=== PATIENT | female | born 1990 | race Hispanic/Latino ===

== ENCOUNTER 2019-06-05 17:20 | Inpatient (IN) | payer MEDICAID ==
[~2019-06-05] VITALS: Ht 165.1 cm; Wt 94.1 kg
[~2019-06-05 17:20] MED LIST: ACET1TAB12 PO; MACR100 PO
[2019-06-05] MEDS ORDERED: SODIUM CHLORIDE 0.9% 1000ML 3,000 ML IV ONE (17:45)
[2019-06-05 17:46] LABS: BASOPHILS % (AUTO) 0.3 % (0.0-5.0); EOSINOPHILS % (AUTO) 0.1 % (0.0-8.0); HEMATOCRIT 43.1 % (36-48); LYMPHOCYTES % (AUTO) 12.9 % (21.0-51.0); MEAN CORPUSCULAR HEMOGLOBIN 29.1 pg (27.0-33.0); MEAN CORPUSCULAR VOLUME 85.7 fL (79-99); MONOCYTES % (AUTO) 4.9 % (3.0-13.0); NEUTROPHILS % (AUTO) 81.8 % (40.0-77.0); PLATELET COUNT (AUTO) 372 K/uL (130-400); RED BLOOD CELL COUNT(AUTO) 5.02 MIL/uL (4.00-5.50); RED CELL DISTRIBUTION WIDTH 13.8 % (11.0-15.5); WHITE BLOOD COUNT (AUTO) 26.8 K/uL (4.8-10.8)
[2019-06-05 18:02] LABS: CARBON DIOXIDE 21 mmol/L (21-32); CHLORIDE 101 mmol/L (101-111); CREATININE 0.9 mg/dL (0.5-1.5); GLOMERULAR FILTR. RATE CALC 78 mL/min (>60); GLUCOSE,RANDOM 343 mg/dL (70-105); INR 0.98 (0.85-1.15); PARTIAL THROMBOPLASTIN TIME 25.9 SEC (26.3-35.5); POTASSIUM 3.4 mmol/L (3.5-5.1); PROTHROMBIN TIME 10.3 SEC (9.6-11.6); SODIUM SERUM 137 mmol/L (136-145); UREA NITROGEN, BLOOD 12 mg/dL (7-18)
[2019-06-05 18:16] LABS: APPEARANCE,URINE Cloudy (CLEAR); BILIRUBIN,URINE Negative (NEGATIVE); COLOR,URINE Yellow (YELLOW); GLUCOSE, URINE (UA) >=1000 mg/dL (NEGATIVE); KETONES,URINE 40 mg/dL (NEGATIVE); LEUKOCYTE ESTERASE ,URINE Small (NEGATIVE); NITRATE,URINE Positive (NEGATIVE); OCCULT BLOOD,URINE Trace (NEGATIVE); PH,URINE 5.5 (5.0-8.0); PROTEIN,URINE Trace mg/dL (NEGATIVE); UROBILINOGEN,URINE 0.2 mg/dL (0.2-1.0)
[2019-06-05 18:17] LABS: BILIRUBIN,TOTAL 1.3 mg/dL (0.2-1.0)
[2019-06-05 18:18] LABS: ALANINE AMINOTRANSFERASE 9 U/L (12-78); ALBUMIN 3.5 g/dL (3.5-5.0); ASPARTATE AMINOTRANSFERASE 9 U/L (10-37); CREATINE KINASE, TOTAL 29 U/L (21-232); MYOGLOBIN 17 ng/mL (10-92); TROPONIN I < 0.04 ng/mL (0.00-0.06)
[2019-06-05] MEDS ORDERED: POTASSIUM BICARB/CIT AC 25 MEQ TABLET.EFF ONE (18:25)
[2019-06-05] MEDS ORDERED: METRONIDAZOLE 500MG/100ML BAG 100 ML ONE (18:26)
[2019-06-05] MEDS ORDERED: ACETAMINOPHEN 325 MG TAB ONE (18:26)
[2019-06-05] MEDS ORDERED: INSULIN HUMULIN R 100 UNIT/ML 3ML ONE (18:28)
[2019-06-05 18:29] LABS: BACTERIA,URINE Moderate /HPF (None Seen); MUCUS,URINE Few LPF (None Seen)
[2019-06-05] MEDS ORDERED: GENTAMICIN SULFATE 100 MG in SODIUM CHLORIDE 0.9% 100 ML IV ONE (19:00)
[2019-06-05] MEDS ORDERED: ONDANSETRON HCL 4 MG/2 ML VIAL ONE (20:11)
[2019-06-05] MEDS ORDERED: MORPHINE SULFATE 4 MG/1ML SYG ONE (20:11)
[2019-06-05] MEDS: SODIUM CHLORIDE 0.9% 1000ML 1,000 ML IV SCH (21:20)
[2019-06-05] MEDS ORDERED: LACTULOSE 20 GM/30 ML UDCUP PO PRN (21:30)
[2019-06-05] MEDS ORDERED: ONDANSETRON HCL 4 MG/2 ML VIAL IV PRN (21:30)
[2019-06-05] MEDS ORDERED: POTASSIUM CHLORIDE 10% ELIXIR 20 MEQ/15 ML UDCUP PO PRN (21:30)
[2019-06-05] MEDS ORDERED: ACETAMINOPHEN 325 MG TAB PO PRN ×2 (21:30)
[2019-06-05] MEDS ORDERED: LIDOCAINE HCL-MPF 1% 2ML VIAL IV PRN (21:30)
[2019-06-05] MEDS ORDERED: GENTAMICIN PROTOCOL PER PHARMACY IV SCH (21:30)
[2019-06-05] MEDS ORDERED: POTASSIUM CHLORIDE 10MEQ/100ML 100 ML IV PRN (21:30)
[2019-06-05] MEDS ORDERED: PHARMACY COMMUNICATION MISC SCH (21:45)
[2019-06-05] MEDS ORDERED: KETOROLAC TROMETHAMINE 15MG/ML ONE (22:16)
[2019-06-05] MEDS ORDERED: SODIUM CHLORIDE 0.9% 1000ML 1,000 ML IV ONE (22:17)
[2019-06-06] VITALS (25 sets, daily range): BP systolic 109–157; BP diastolic 55–101
[2019-06-06] MEDS: KETOROLAC TROMETHAMINE 15MG/ML IV PRN ×2 (02:05→08:39)
[2019-06-06 05:05] LABS: BASOPHILS % (AUTO) 0.6 % (0.0-5.0); EOSINOPHILS % (AUTO) 0.1 % (0.0-8.0); HEMATOCRIT 38.7 % (36-48); MEAN CORPUSCULAR HEMOGLOBIN 29.2 pg (27.0-33.0); MEAN CORPUSCULAR HGB CONC 34.2 g/dL (32.0-36.0); MEAN CORPUSCULAR VOLUME 85.6 fL (79-99); MONOCYTES % (AUTO) 3.3 % (3.0-13.0); PLATELET COUNT (AUTO) 297 K/uL (130-400); RED BLOOD CELL COUNT(AUTO) 4.52 MIL/uL (4.00-5.50); RED CELL DISTRIBUTION WIDTH 13.6 % (11.0-15.5)
[2019-06-06 05:10] LABS: CREATININE 0.8 mg/dL (0.5-1.5); POTASSIUM 3.7 mmol/L (3.5-5.1)
[2019-06-06] MEDS ORDERED: GENTAMICIN SULFATE 240 MG in SODIUM CHLORIDE 0.9% 100 ML IV SCH (06:00)
[2019-06-06] MEDS: INSULIN HUMULIN R 100 UNIT/ML 3ML SQ SCH ×3 (06:32→21:00)
[2019-06-06] MEDS: FAMOTIDINE 20MG TAB 20 MG TAB PO SCH ×2 (08:41→21:50)
[2019-06-06] MEDS: ENOXAPARIN SODIUM 40 MG/0.4 ML SYRINGE SQ SCH (09:00)
[2019-06-06] MEDS ORDERED: FLU VACC QUAD 2019-20(6MOS UP) 60 MCG/0.5 ML VIAL IM SCH (09:15)
[2019-06-06] MEDS ORDERED: FLU VACC QS2019-20 36MOS UP/PF 60 MCG/0.5 ML ML IM SCH (10:00)
[2019-06-06] MEDS ORDERED: MORPHINE SULFATE 2 MG/ML 1ML SYG IVP PRN (12:00)
[2019-06-06] MEDS: SODIUM CHLORIDE 0.9% 1000ML 1,000 ML IV SCH ×3 (12:05→21:50)
[2019-06-06] MEDS: POTASSIUM CHLORIDE 20 MEQ ERTAB PO PRN (12:09)
--- NOTE | 2019-06-06 13:05 | NUR ---
diabetic diet education: Printed materials preinted and reviewed on diabetic diet. Pt with minimal questions. Reports lots of pain, nausea due to pain and gagging due to nausea. Pt encouraged to review printed materials when feeling better. RD will continue to f/u for diet reenforcement. Pt encouraged to request RD consult as well. Addendum: 06/06/19 at [address] Amended: Links added.
[2019-06-06] MEDS: MEROPENEM 1 GM VIAL IVP SCH ×2 (13:18→21:50)
--- NOTE | 2019-06-06 13:19 | NUR ---
Nutrition intervention: Nutrition consult for DM diet education. At time of visit pt reports n/d and lots of pain, medication being provided by RN. Provided pt with education however reenforcement may be beneficial. Will continue to monitor and f/u for continued nutrition intervention. Recommendations: Continue current diet therapy. Consult RD if nutritional questions or concerns arise. Addendum: 06/06/19 at [address] Amended: Links added.
[2019-06-06] MEDS ORDERED: LOPERAMIDE 1 MG/7.5 ML UDCUP PO SCH (13:30)
[2019-06-06] MEDS: MORPHINE SULFATE 4 MG/1ML SYG IM PRN (14:19)
[2019-06-06] MEDS ORDERED: METOCLOPRAMIDE 10 MG/2 ML VIAL ONE (15:14)
--- NOTE | 2019-06-06 16:10 | NUR ---
D/C PLAN CM spoke to pt regarding d/c planning. Pt is ind. and lives with father. States family can assist in care if needed. Plan to home. No needs verbalized or identified. CM to f/u. Addendum: 06/06/19 at 1612 by ANDERS MCGOWAN CM Amended: Links added.
[2019-06-06] MEDS ORDERED: METOCLOPRAMIDE 10 MG/2 ML VIAL IVP SCH (16:15)
[2019-06-06] MEDS ORDERED: IOHEXOL-350 50ML VIAL IV ONE (18:50)
[2019-06-06] MEDS ORDERED: LIDOCAINE PF 2% 5ML ABBOJECT ONE (19:20)
[2019-06-06] MEDS ORDERED: MIDAZOLAM HCL 1 MG/ML 2ML VIAL ONE (19:20)
[2019-06-06] MEDS ORDERED: NEOSTIGMINE 5MG/5ML SYR IV ONE (19:21)
[2019-06-06] MEDS ORDERED: PROPOFOL 10 MG/ML 20ML VIAL IV ONE (19:21)
[2019-06-06] MEDS ORDERED: SUCCINYLCHOLINE 200MG/10ML SYR ONE (19:21)
[2019-06-06] MEDS ORDERED: FENTANYL CITRATE PF 50 MCG/1 ML 2ML VIAL ONE ×2 (19:21→20:22)
[2019-06-06] MEDS ORDERED: GLYCOPYRROLATE 1 MG/5 ML SYRINGE ONE (19:21)
[2019-06-06] MEDS ORDERED: ROCURONIUM 10MG/1ML SYR 10 MG/ML ML ONE (19:21)
[2019-06-06] MEDS ORDERED: ONDANSETRON HCL 4 MG/2 ML VIAL ONE (20:27)
--- NOTE | 2019-06-06 21:50 | NUR ---
Nursing Bfle-Stel-yd arrival Pt arrived to floor at 2140 alert and oriented from Left urethral stent placement. Pt stated she is hungry but I informed the pt I need to see orders. Pt denies any nausea and only a headache from the bright lights. Pt set up on bedside monitor for post-op vitals. Pt urinating per bedpan. Pt's medications given to her. Pt given liquids.
[2019-06-07] MEDS: MORPHINE SULFATE 4 MG/1ML SYG IM PRN (00:17)
[2019-06-07 00:38] VITALS: BP 134/74
[2019-06-07] MEDS: SODIUM CHLORIDE 0.9% 1000ML 1,000 ML IV SCH ×3 (02:18→21:10)
[2019-06-07 04:00] VITALS: BP 126/79
[2019-06-07] MEDS: KETOROLAC TROMETHAMINE 15MG/ML IV PRN ×2 (04:11→14:32)
[2019-06-07] MEDS: MEROPENEM 1 GM VIAL IVP SCH ×3 (05:22→18:45)
[2019-06-07 05:44] LABS: BASOPHILS % (AUTO) 0.5 % (0.0-5.0); EOSINOPHILS % (AUTO) 0.4 % (0.0-8.0); HEMATOCRIT 35.2 % (36-48); MEAN CORPUSCULAR HEMOGLOBIN 29.2 pg (27.0-33.0); MEAN CORPUSCULAR HGB CONC 33.6 g/dL (32.0-36.0); MONOCYTES % (AUTO) 9.4 % (3.0-13.0); NEUTROPHILS % (AUTO) 70.7 % (40.0-77.0); PLATELET COUNT (AUTO) 255 K/uL (130-400); RED BLOOD CELL COUNT(AUTO) 4.05 MIL/uL (4.00-5.50); RED CELL DISTRIBUTION WIDTH 13.7 % (11.0-15.5); WHITE BLOOD COUNT (AUTO) 15.2 K/uL (4.8-10.8)
[2019-06-07 06:01] LABS: ALBUMIN 2.4 g/dL (3.5-5.0); ASPARTATE AMINOTRANSFERASE 9 U/L (10-37); BILIRUBIN,TOTAL 0.7 mg/dL (0.2-1.0); CARBON DIOXIDE 20 mmol/L (21-32); CHLORIDE 107 mmol/L (101-111); CREATININE 0.6 mg/dL (0.5-1.5); GLOMERULAR FILTR. RATE CALC 125 mL/min (>60); GLUCOSE,RANDOM 242 mg/dL (70-105); POTASSIUM 3.4 mmol/L (3.5-5.1); SODIUM SERUM 138 mmol/L (136-145); TOTAL PROTEIN, SERUM 6.1 g/dL (6.0-8.3); UREA NITROGEN, BLOOD 7 mg/dL (7-18)
[2019-06-07 06:05] LABS: ALANINE AMINOTRANSFERASE < 6 U/L (12-78)
[2019-06-07] MEDS: POTASSIUM CHLORIDE 20 MEQ ERTAB PO PRN ×3 (06:18→18:46)
[2019-06-07] MEDS: INSULIN HUMULIN R 100 UNIT/ML 3ML SQ SCH ×4 (06:32→21:22)
[2019-06-07 07:54] VITALS: BP 130/93
[2019-06-07] MEDS ORDERED: CEFTRIAXONE SODIUM 2 GM VIAL IVP SCH (09:00)
[2019-06-07] MEDS: FAMOTIDINE 20MG TAB 20 MG TAB PO SCH ×2 (10:24→20:17)
[2019-06-07] MEDS: ENOXAPARIN SODIUM 40 MG/0.4 ML SYRINGE SQ SCH (10:24)
[2019-06-07] MEDS: TRAMADOL HCL 50 MG TABLET PO PRN ×2 (10:25→17:09)
[2019-06-07 12:00] VITALS: BP 130/90
[2019-06-07 16:08] VITALS: BP 147/91
[2019-06-07 20:00] VITALS: BP 158/91
[2019-06-07] MEDS: HYDROCODONE/ACETAMINOPHEN 5/325 MG TAB PO PRN (20:19)
--- NOTE | 2019-06-07 20:20 | NUR ---
MEDS SHIFT ASSESSMENT DONE, PLEASE REFER TO CHART. DUE MEDS ADMINISTERED, NORCO PO GIVEN FOR PAINS. PT TOLERATED MEDS WELL. KEPT RESTED AND COMFORTABLE IN BED. CALL LIGHT WITHIN REACH. WILL RE-ASSESS PT. Addendum: 06/08/19 at 0201 by MARIO LANG RN RN Amended: Links added.
--- NOTE | 2019-06-07 21:20 | NUR ---
INSULIN PT JUST HAD HER SHOWER, TOLERATED ACTIVITY WELL. DUE INSULIN DOSE ADMINISTERED, TOLERATED WELL. ENCOURAGED TO REST AND SLEEP. WILL MONITOR PT.
[2019-06-08] VITALS: BP 150/95
[2019-06-08] MEDS: MEROPENEM 1 GM VIAL IVP SCH ×3 (01:41→17:57)
[2019-06-08] MEDS: SODIUM CHLORIDE 0.9% 1000ML 1,000 ML IV SCH ×3 (01:44→23:20)
[2019-06-08] MEDS: TRAMADOL HCL 50 MG TABLET PO PRN ×2 (01:45→20:08)
--- NOTE | 2019-06-08 01:45 | NUR ---
MEDS PT CLAIMS OF FLANK PAINS WHEN MOVING. DUE MEDS ADMINISTERED, TRAMADOL PO GIVEN FOR PAINS. NEW IV BAG WITH NEW IV TUBINGS HUNG. PT TOLERATED MEDS WELL. KEPT RESTED AND COMFORTABLE IN BED. WILL RE-ASSESS PT.
[2019-06-08 04:00] VITALS: BP 147/97
[2019-06-08 04:49] LABS: BASOPHILS % (AUTO) 0.9 % (0.0-5.0); EOSINOPHILS % (AUTO) 1.2 % (0.0-8.0); HEMATOCRIT 33.9 % (36-48); LYMPHOCYTES % (AUTO) 33.2 % (21.0-51.0); MEAN CORPUSCULAR HEMOGLOBIN 29.5 pg (27.0-33.0); MEAN CORPUSCULAR HGB CONC 34.5 g/dL (32.0-36.0); MEAN CORPUSCULAR VOLUME 85.5 fL (79-99); MONOCYTES % (AUTO) 10.5 % (3.0-13.0); NEUTROPHILS % (AUTO) 54.2 % (40.0-77.0); PLATELET COUNT (AUTO) 278 K/uL (130-400); RED BLOOD CELL COUNT(AUTO) 3.97 MIL/uL (4.00-5.50); RED CELL DISTRIBUTION WIDTH 13.4 % (11.0-15.5); WHITE BLOOD COUNT (AUTO) 11.5 K/uL (4.8-10.8)
[2019-06-08 05:08] LABS: ALBUMIN 2.5 g/dL (3.5-5.0); BILIRUBIN,TOTAL 0.4 mg/dL (0.2-1.0); CREATININE 0.6 mg/dL (0.5-1.5); POTASSIUM 3.7 mmol/L (3.5-5.1); TOTAL PROTEIN, SERUM 6.4 g/dL (6.0-8.3)
[2019-06-08] MEDS: HYDROCODONE/ACETAMINOPHEN 5/325 MG TAB PO PRN (06:03)
[2019-06-08] MEDS: INSULIN HUMULIN R 100 UNIT/ML 3ML SQ SCH ×4 (06:04→21:14)
--- NOTE | 2019-06-08 06:05 | NUR ---
MEDS PT COMPLAINTS OF BACK PAINS.MEDICATED WITH NORCO PO. INSULIN DOSE ADMINISTERED. PT TOLERATED MEDS WELL. KEPT COMFORTABLE. WILL RE-ASSESS PT.
[2019-06-08 08:00] VITALS: BP 129/81
[2019-06-08] MEDS: FAMOTIDINE 20MG TAB 20 MG TAB PO SCH ×2 (08:47→20:08)
[2019-06-08] MEDS: ENOXAPARIN SODIUM 40 MG/0.4 ML SYRINGE SQ SCH (08:49)
[2019-06-08 11:43] VITALS: BP 132/86
[2019-06-08] MEDS: KETOROLAC TROMETHAMINE 10 MG TABLET PO PRN (12:18)
[2019-06-08 16:00] VITALS: BP 147/96
--- NOTE | 2019-06-08 16:45 | NUR ---
Pt Update Dr. Ulrich paged for d/c clearance, pending call back.
[2019-06-08] MEDS ORDERED: CLONAZEPAM 0.5 MG TABLET PO ONE (18:20)
[2019-06-08 19:22] VITALS: BP 159/85
--- NOTE | 2019-06-08 20:08 | NUR ---
MEDS SHIFT ASSESSMENT DONE, PLEASE REFER TO CHART. PT COMPLAINTS OF HEADACHE. DUE MEDS ADMINISTERED, TRAMADOL PO GIVEN FOR PAINS. PT TOLERATED MEDS WELL. KEPT RESTED AND COMFORTABLE IN BED. CALL LIGHT WITHIN REACH. WILL RE-ASSESS PT. FAMILY AT BEDSIDE. Addendum: 06/08/19 at 2030 by MARIO LANG RN RN Amended: Links added.
[2019-06-08] MEDS: INSULIN GLARGINE 100 UNITS/ML 10 ML VIAL SQ SCH (21:14)
[2019-06-09] VITALS (7 sets, daily range): BP systolic 139–163; BP diastolic 68–93
[2019-06-09] MEDS: MEROPENEM 1 GM VIAL IVP SCH (01:34)
[2019-06-09] MEDS: KETOROLAC TROMETHAMINE 10 MG TABLET PO PRN ×2 (01:35→20:56)
[2019-06-09] MEDS: SODIUM CHLORIDE 0.9% 1000ML 1,000 ML IV SCH ×2 (01:35→14:09)
--- NOTE | 2019-06-09 01:35 | NUR ---
MEDS PT CLAIMS OF BACK AND HEADACHE. DUE MEDS GIVEN AND NEW IVF BAG HUNG. TORADOL PO GIVEN FOR PAINS. WARM PACKS GIVEN FOR BACK. KEPT COMFORTABLE IN BED. WILL RE-ASSESS PT.
[2019-06-09 05:16] LABS: BASOPHILS % (AUTO) 0.7 % (0.0-5.0); EOSINOPHILS % (AUTO) 1.8 % (0.0-8.0); LYMPHOCYTES % (AUTO) 37.3 % (21.0-51.0); MEAN CORPUSCULAR HEMOGLOBIN 29.3 pg (27.0-33.0); MEAN CORPUSCULAR HGB CONC 33.9 g/dL (32.0-36.0); MEAN CORPUSCULAR VOLUME 86.6 fL (79-99); MONOCYTES % (AUTO) 8.5 % (3.0-13.0); NEUTROPHILS % (AUTO) 51.7 % (40.0-77.0); PLATELET COUNT (AUTO) 336 K/uL (130-400); RED BLOOD CELL COUNT(AUTO) 4.38 MIL/uL (4.00-5.50); RED CELL DISTRIBUTION WIDTH 13.6 % (11.0-15.5); WHITE BLOOD COUNT (AUTO) 12.1 K/uL (4.8-10.8)
[2019-06-09 05:24] LABS: HEMOGLOBIN A1C 10.5 % (4.0-6.0)
[2019-06-09 05:31] LABS: ALBUMIN 2.5 g/dL (3.5-5.0); BILIRUBIN,TOTAL 0.3 mg/dL (0.2-1.0); CREATININE 0.8 mg/dL (0.5-1.5); POTASSIUM 3.6 mmol/L (3.5-5.1); TOTAL PROTEIN, SERUM 6.6 g/dL (6.0-8.3)
[2019-06-09] MEDS: POTASSIUM CHLORIDE 20 MEQ ERTAB PO PRN ×2 (06:05→09:49)
[2019-06-09] MEDS: TRAMADOL HCL 50 MG TABLET PO PRN ×2 (06:05→17:44)
--- NOTE | 2019-06-09 06:05 | NUR ---
MEDS PT'S KCL LEVEL= 3.6. PT STILL COMPLAINTS OF HEADACHE. MEDICATED WITH HYDROCODONE PO. KEPT RESTED IN BED. WILL RE-ASSESS PT. FOR MORE CARE.
[2019-06-09] MEDS: INSULIN HUMULIN R 100 UNIT/ML 3ML SQ SCH ×4 (06:09→21:00)
[2019-06-09] MEDS ORDERED: GLIPIZIDE XL 2.5MG TAB PO SCH (08:00)
[2019-06-09] MEDS: FAMOTIDINE 20MG TAB 20 MG TAB PO SCH ×2 (09:32→20:56)
[2019-06-09] MEDS: SULFAMETHOX-TMP DS 800/160 TAB PO SCH ×2 (09:32→20:56)
[2019-06-09] MEDS: ENOXAPARIN SODIUM 40 MG/0.4 ML SYRINGE SQ SCH (09:32)
[2019-06-09] MEDS: GLIPIZIDE 5 MG TABLET PO SCH ×2 (10:01→17:41)
[2019-06-09] MEDS: METFORMIN HCL 500 MG TABLET PO SCH ×3 (10:01→17:41)
[2019-06-09] MEDS ORDERED: LISINOPRIL 10 MG TABLET PO SCH (14:55)
--- NOTE | 2019-06-09 19:59 | NUR ---
PAGED PT REQUESTING FOR SLEEPING PILL PT CLAIMS THAT SHE IS HAVING HEADACHES FROM LACK OF SLEEP. PAGED CAR ELECTRONICS INSTALLER DRILL SHARPENER OPERATOR FOR [facility] VIA ANSWERING SERVICE. AWAITING CALL BACK.
--- NOTE | 2019-06-09 20:24 | NUR ---
STEPH MELCHOR NP, CALLED BACK REFERRED PT'S HEADACHE AND REQUEST FOR SLEEPING MED. NEW MED ORDER GIVEN, PLEASE REFER TO CPOE. WILL MEDICATE PT.
[2019-06-09] MEDS ORDERED: ZOLPIDEM TARTRATE 5 MG TAB PO ONE (20:30)
--- NOTE | 2019-06-09 20:56 | NUR ---
MEDS SHIFT ASSESSMENT DONE, PLEASE REFER TO CHART. PT CLAIMS OF HEADACHE STILL. DUE MEDS ADMINISTERED, TORADOL PO GIVEN FOR PAIN. AMBIEN PO GIVEN FOR SLEEP. PT TOLERATED MEDS WELL. SALINE LOCKED PT SHE IS REQUESTING TO SHOWER. PCP MADE AWARE TO ASSIST PT. Addendum: 06/10/19 at 0020 by MARIO LANG RN RN Amended: Links added.
[2019-06-09] MEDS: INSULIN GLARGINE 100 UNITS/ML 10 ML VIAL SQ SCH (21:05)
[2019-06-10 00:20] VITALS: BP 141/79
--- NOTE | 2019-06-10 01:39 | NUR ---
ROUNDS PT RESTING WELL, FAIRLY ASLEEP WITH RESPIRATIONS EVEN AND UNLABORED. NO NOTED DISTRESS. KEPT UNDISTURBED FOR NOW. WILL MONITOR PT.
[2019-06-10] MEDS: SODIUM CHLORIDE 0.9% 1000ML 1,000 ML IV SCH ×3 (02:05→15:50)
[2019-06-10 04:10] VITALS: BP 135/81
[2019-06-10 05:16] LABS: BASOPHILS % (AUTO) 0.6 % (0.0-5.0); EOSINOPHILS % (AUTO) 1.7 % (0.0-8.0); HEMATOCRIT 37.5 % (36-48); LYMPHOCYTES % (AUTO) 35.9 % (21.0-51.0); MEAN CORPUSCULAR HEMOGLOBIN 29.3 pg (27.0-33.0); MEAN CORPUSCULAR HGB CONC 34.5 g/dL (32.0-36.0); MONOCYTES % (AUTO) 7.3 % (3.0-13.0); NEUTROPHILS % (AUTO) 54.5 % (40.0-77.0); PLATELET COUNT (AUTO) 378 K/uL (130-400); RED BLOOD CELL COUNT(AUTO) 4.41 MIL/uL (4.00-5.50); RED CELL DISTRIBUTION WIDTH 13.6 % (11.0-15.5); WHITE BLOOD COUNT (AUTO) 12.6 K/uL (4.8-10.8)
[2019-06-10 05:36] LABS: CREATININE 0.7 mg/dL (0.5-1.5); MAGNESIUM 1.7 mg/dL (1.80-2.40); POTASSIUM 3.6 mmol/L (3.5-5.1)
[2019-06-10] MEDS: INSULIN HUMULIN R 100 UNIT/ML 3ML SQ SCH ×2 (06:08→11:30)
[2019-06-10] MEDS: POTASSIUM CHLORIDE 20 MEQ ERTAB PO PRN ×2 (06:10→12:30)
[2019-06-10] MEDS: TRAMADOL HCL 50 MG TABLET PO PRN (06:11)
--- NOTE | 2019-06-10 06:11 | NUR ---
PIV PT'S PIV WAS LEAKING AND NOTED TO BE DISLODGED, CATHETER INTACT. PT'S KCL=3.6. PT COMPLAINTS OF BACK PAINS. MEDICATED WITH TRAMADOL AND POTASSIUM PO. RE-INSERTED PIV G20 TO LEFT FOREARM. PT TOLERATED WELL. KEPT RESTED AND COMFORTABLE IN BED. FOR MORE CARE. Addendum: 06/10/19 at 0630 by MARIO LANG RN RN Amended: Links added.
[2019-06-10 08:00] VITALS: BP 119/87
[2019-06-10] MEDS: GLIPIZIDE 5 MG TABLET PO SCH (08:30)
[2019-06-10] MEDS: SULFAMETHOX-TMP DS 800/160 TAB PO SCH (08:30)
[2019-06-10] MEDS: METFORMIN HCL 500 MG TABLET PO SCH ×2 (08:30→12:30)
[2019-06-10] MEDS: FAMOTIDINE 20MG TAB 20 MG TAB PO SCH (08:30)
[2019-06-10] MEDS: ENOXAPARIN SODIUM 40 MG/0.4 ML SYRINGE SQ SCH (08:31)
[2019-06-10] MEDS ORDERED: LISINOPRIL 10 MG TABLET PO SCH (09:00)
[2019-06-10 12:45] VITALS: BP 140/68
[2019-06-10] MEDS ORDERED: METF-445 PO (13:18)
[2019-06-10] MEDS ORDERED: GLIP10TA9 PO (13:18)
[2019-06-10] MEDS ORDERED: TRAM50TA4 PO (13:18)
[2019-06-10] MEDS ORDERED: LISI-613 PO (13:18)
[2019-06-10] MEDS ORDERED: SULF1TAB3 PO (13:18)
--- NOTE | 2019-06-10 14:31 | NUR ---
Pt D/C Update Pt educated on medications, doses, and frequency of new medications. Patient discharged to Home to follow-up with her primary care physician, within 3-5 days for transition visit. Patient will also need to follow-up, with Dr. Duarte Ulrich as scheduled for definitive treatment of, nephrolithiasis, appointment made for 06/26/19 @ 1:30pm. Unable to reach PCP for appointment, pt to make own appointment in 3-5 days. Pt verbalized understanding of d/c instructions. PIV removed safely, No complication noted, Pt d/c home accompanied by significant other.
--- NOTE | 2019-06-10 16:13 | NUR ---
PT REFUSED FLU VACCINATION FOR [id number]
== END 2019-06-10 16:15 | disposition home or self-care (01) | DRG 720 ==
LOC: EDH 17:20 → OBSVTOIN 17:21 → EDHIP 17:21 → 3BH 06-06 01:11
PROVIDERS: ADMIT Family Medicine; ATTEND Family Medicine
PROC: 0T778DZ Dilation of Left Ureter with Intraluminal Device, Via Natural or Artificial Opening Endoscopic (ICD-10-PCS; principal; 2019-06-06 19:30)
PROC: 3E02340 Introduction of Influenza Vaccine into Muscle, Percutaneous Approach (ICD-10-PCS; 2019-06-06 19:30)
DX: A41.50 Gram-negative sepsis, unspecified (principal); E87.2 Acidosis; N13.6 Pyonephrosis; B96.20 Unspecified Escherichia coli [E. coli] as the cause of diseases classified elsewhere; E11.9 Type 2 diabetes mellitus without complications; E66.9 Obesity, unspecified; K76.0 Fatty (change of) liver, not elsewhere classified; R65.20 Severe sepsis without septic shock; E87.6 Hypokalemia; B96.1 Klebsiella pneumoniae [K. pneumoniae] as the cause of diseases classified elsewhere; Z68.34 Body mass index [BMI] 34.0-34.9, adult; Z88.1 Allergy status to other antibiotic agents; Z23 Encounter for immunization; Z79.4 Long term (current) use of insulin; Z87.442 Personal history of urinary calculi; Z83.3 Family history of diabetes mellitus; Z82.5 Family history of asthma and other chronic lower respiratory diseases; Z82.49 Family history of ischemic heart disease and other diseases of the circulatory system
CPT/HCPCS: 36415; 71045; 74018; 74176; 80048; 80053; 80170; 81001; 81025; 82550; 82948; 83036; 83605; 83735; 83874; 84145; 84484; 85025; 85610; 85730; 87040; 87077; 87088; 87186; 87804; 93005; 99291; C1758; C1769; C2617; G0378; J0330; J1580; J1650; J1815; J1885; J2001; J2185; J2250; J2270; J2405; J2704; J2710; J2765; J3010; J3490; J7030; Q2035; Q2036; Q9967

== ENCOUNTER 2019-07-18 02:47 | Inpatient (IN) | payer MEDICAID, OTHER ==
[~2019-07-18] VITALS: Ht 165.1 cm; Wt 93.9 kg
[~2019-07-18 02:47] MED LIST changes: -ACET1TAB12 PO; +GLIP10TA9 PO; +LISI-613 PO; -MACR100 PO; +METF-445 PO; +SULF1TAB3 PO; +TRAM50TA4 PO
[2019-07-18] MEDS ORDERED: SODIUM CHLORIDE 0.9% 1000ML 1,000 ML IV ONE (03:14)
[2019-07-18 03:31] LABS: APPEARANCE,URINE Cloudy (CLEAR); BILIRUBIN,URINE Negative (NEGATIVE); COLOR,URINE Yellow (YELLOW); GLUCOSE, URINE (UA) >=1000 mg/dL (NEGATIVE); KETONES,URINE Negative (NEGATIVE); LEUKOCYTE ESTERASE ,URINE Moderate (NEGATIVE); NITRATE,URINE Positive (NEGATIVE); OCCULT BLOOD,URINE Moderate (NEGATIVE); PROTEIN,URINE Trace mg/dL (NEGATIVE)
[2019-07-18 03:33] LABS: EOSINOPHILS % (AUTO) 0.5 % (0.0-8.0); HEMATOCRIT 44.9 % (36-48); LYMPHOCYTES % (AUTO) 26.2 % (21.0-51.0); MEAN CORPUSCULAR HEMOGLOBIN 29.2 pg (27.0-33.0); MEAN CORPUSCULAR VOLUME 85.7 fL (79-99); MONOCYTES % (AUTO) 6.6 % (3.0-13.0); NEUTROPHILS % (AUTO) 65.7 % (40.0-77.0); NUCLEATED RED BLOOD CELLS 0.1 % (0.0-0.19); PLATELET COUNT (AUTO) 436 K/uL (130-400); RED BLOOD CELL COUNT(AUTO) 5.24 MIL/uL (4.00-5.50); RED CELL DISTRIBUTION WIDTH 13.3 % (11.0-15.5); WHITE BLOOD COUNT (AUTO) 13.2 K/uL (4.8-10.8)
[2019-07-18] MEDS ORDERED: ONDANSETRON HCL 4 MG/2 ML VIAL ONE (03:34)
[2019-07-18] MEDS ORDERED: KETOROLAC TROMETHAMINE 15MG/ML ONE (03:34)
[2019-07-18] MEDS ORDERED: MORPHINE SULFATE 4 MG/1ML SYG ONE (03:35)
[2019-07-18 03:36] LABS: HCG,QUAL RESULT NEGATIVE (NEGATIVE)
[2019-07-18 03:39] LABS: AMPHET/METH SCREEN,URINE NEGATIVE (NEGATIVE); BARBITURATE SCREEN, URINE NEGATIVE (NEGATIVE); BENZODIAZEPINES SCREEN,URINE NEGATIVE (NEGATIVE); CANNABINOID SCREEN,URINE NEGATIVE (NEGATIVE); COCAINE SCREEN,URINE NEGATIVE (NEGATIVE); OPIATE SCREEN,URINE NEGATIVE (NEGATIVE); PHENCYCLIDINE SCREEN,URINE NEGATIVE (NEGATIVE)
[2019-07-18 03:43] LABS: BACTERIA,URINE Moderate /HPF (None Seen); SQUAMOUS EPITHELIAL CELL,UR 0-2 /HPF (0-2); WBC,URINE 26-50 /HPF (0-1)
[2019-07-18 04:06] LABS: CREATININE 0.7 mg/dL (0.5-1.5); POTASSIUM 3.6 mmol/L (3.5-5.1)
[2019-07-18 04:15] LABS: ALBUMIN 3.1 g/dL (3.5-5.0); BILIRUBIN,TOTAL 0.5 mg/dL (0.2-1.0); TOTAL PROTEIN, SERUM 7.6 g/dL (6.0-8.3)
[2019-07-18] MEDS ORDERED: ZOSYN 3.375GM+NS 50ML 50 ML IV ONE (04:23)
[2019-07-18] MEDS: SODIUM CHLORIDE 0.9% 1000ML 1,000 ML IV SCH ×2 (05:45→13:07)
[2019-07-18] MEDS: INSULIN HUMULIN R 100 UNIT/ML 3ML SQ SCH ×4 (06:00→21:09)
[2019-07-18] MEDS ORDERED: MORPHINE SULFATE 2 MG/ML 1ML SYG ONE (06:11)
[2019-07-18] MEDS ORDERED: INSULIN HUMULIN R 100 UNIT/ML 3ML ONE (07:55)
[2019-07-18] MEDS ORDERED: FAMOTIDINE/PF 20 MG/2 ML VIAL IV ONE (07:59)
[2019-07-18 08:55] VITALS: BP 147/80
[2019-07-18] MEDS: FAMOTIDINE/PF 20 MG/2 ML VIAL IV SCH ×2 (09:00→20:51)
[2019-07-18] MEDS: MORPHINE SULFATE 2 MG/ML 1ML SYG IVP PRN ×3 (09:32→20:51)
[2019-07-18 12:00] VITALS: BP 113/70
[2019-07-18] MEDS ORDERED: ZOSYN 3.375GM+NS 50ML 50 ML IV SCH (12:00)
[2019-07-18] MEDS: ZOSYN 3.375GM+NS 50ML 50 ML IV SCH ×2 (13:06→20:51)
[2019-07-18 16:00] VITALS: BP 125/66
[2019-07-18] MEDS ORDERED: KETOROLAC TROMETHAMINE 60 MG/2 ML VIAL ONE (17:27)
[2019-07-18] MEDS ORDERED: KETOROLAC TROMETHAMINE 60 MG/2 ML VIAL IV PRN (17:30)
[2019-07-18 20:14] VITALS: BP 119/68
[2019-07-18] MEDS: ONDANSETRON HCL 4 MG/2 ML VIAL IVP PRN (20:51)
[2019-07-19 00:33] VITALS: BP 149/87
[2019-07-19] MEDS: SODIUM CHLORIDE 0.9% 1000ML 1,000 ML IV SCH ×3 (01:56→16:51)
[2019-07-19] MEDS: MORPHINE SULFATE 2 MG/ML 1ML SYG IVP PRN (02:25)
[2019-07-19 04:47] VITALS: BP 105/72
[2019-07-19] MEDS: ZOSYN 3.375GM+NS 50ML 50 ML IV SCH ×3 (05:07→21:00)
[2019-07-19] MEDS: INSULIN HUMULIN R 100 UNIT/ML 3ML SQ SCH ×4 (06:15→21:10)
[2019-07-19] MEDS ORDERED: MORPHINE SULFATE 4 MG/1ML SYG ONE (06:55)
[2019-07-19] MEDS ORDERED: MORPHINE SULFATE 4 MG/1ML SYG IV PRN (07:00)
[2019-07-19 07:22] LABS: BASOPHILS % (AUTO) 0.8 % (0.0-5.0); EOSINOPHILS % (AUTO) 1.2 % (0.0-8.0); HEMATOCRIT 38.1 % (36-48); LYMPHOCYTES % (AUTO) 35.6 % (21.0-51.0); MEAN CORPUSCULAR HEMOGLOBIN 28.9 pg (27.0-33.0); MEAN CORPUSCULAR HGB CONC 33.9 g/dL (32.0-36.0); MEAN CORPUSCULAR VOLUME 85.2 fL (79-99); NEUTROPHILS % (AUTO) 56.4 % (40.0-77.0); PLATELET COUNT (AUTO) 361 K/uL (130-400); RED BLOOD CELL COUNT(AUTO) 4.47 MIL/uL (4.00-5.50); RED CELL DISTRIBUTION WIDTH 13.2 % (11.0-15.5); WHITE BLOOD COUNT (AUTO) 10.4 K/uL (4.8-10.8)
[2019-07-19 07:34] LABS: CREATININE 0.7 mg/dL (0.5-1.5); POTASSIUM 3.8 mmol/L (3.5-5.1)
[2019-07-19 08:00] VITALS: BP 110/68
[2019-07-19] MEDS ORDERED: TAMSULOSIN HCL 0.4 MG CAP.ER.24H ONE (09:34)
[2019-07-19] MEDS: FAMOTIDINE/PF 20 MG/2 ML VIAL IV SCH ×2 (09:35→21:00)
[2019-07-19] MEDS: TAMSULOSIN HCL 0.4 MG CAP.ER.24H PO SCH ×2 (09:35→21:00)
[2019-07-19] MEDS ORDERED: MORPHINE SULFATE 2 MG/ML 1ML SYG IVP PRN (09:45)
[2019-07-19 11:00] VITALS: BP 101/61
[2019-07-19] MEDS: ONDANSETRON HCL 4 MG/2 ML VIAL IVP PRN ×2 (11:53→18:05)
--- NOTE | 2019-07-19 12:25 | NUR ---
cm note met with patient and states resides at home with boyfriend and her father, and family pt independent with adls and self care and ambulation, no dme, dc plan is back home. states no dc needs. Addendum: 07/19/19 at 1226 by LEAH POOLE CM Amended: Links added. Addendum: 07/19/19 at 1228 by LEAH POOLE CM cm note continued per patient states that she has medicaid but is in the process of reinstating it.
[2019-07-19] MEDS: HYDROMORPHONE HCL 0.5 MG/0.5 ML ML IVP PRN ×2 (15:30→21:32)
[2019-07-19 16:00] VITALS: BP 104/67
[2019-07-19 20:18] VITALS: BP 145/75
[2019-07-20] VITALS (7 sets, daily range): BP systolic 116–150; BP diastolic 71–83
[2019-07-20] MEDS: SODIUM CHLORIDE 0.9% 1000ML 1,000 ML IV SCH ×3 (03:28→19:24)
[2019-07-20] MEDS: HYDROMORPHONE HCL 0.5 MG/0.5 ML ML IVP PRN ×2 (03:32→10:32)
[2019-07-20] MEDS: ZOSYN 3.375GM+NS 50ML 50 ML IV SCH ×3 (05:01→20:21)
[2019-07-20 05:12] LABS: BASOPHILS % (AUTO) 0.7 % (0.0-5.0); EOSINOPHILS % (AUTO) 0.3 % (0.0-8.0); HEMATOCRIT 38.4 % (36-48); LYMPHOCYTES % (AUTO) 21.6 % (21.0-51.0); MEAN CORPUSCULAR HEMOGLOBIN 29.3 pg (27.0-33.0); MEAN CORPUSCULAR HGB CONC 34.3 g/dL (32.0-36.0); MEAN CORPUSCULAR VOLUME 85.3 fL (79-99); MONOCYTES % (AUTO) 5.6 % (3.0-13.0); NEUTROPHILS % (AUTO) 71.8 % (40.0-77.0); PLATELET COUNT (AUTO) 358 K/uL (130-400); WHITE BLOOD COUNT (AUTO) 12.6 K/uL (4.8-10.8)
[2019-07-20 05:18] LABS: CREATININE 0.7 mg/dL (0.5-1.5); POTASSIUM 3.6 mmol/L (3.5-5.1)
[2019-07-20] MEDS: INSULIN HUMULIN R 100 UNIT/ML 3ML SQ SCH ×4 (06:29→20:30)
--- NOTE | 2019-07-20 07:40 | NUR ---
NOTE ASLEEP. AWAKENS EASILY. REPORTS LET FLANK PAIN BUT WAS MEDICATED WITH DILAUDID EARLIER. SHE HAS BEEN SLEEPING ACCORDING TO NIGHT NURSE AND SHE AWAKENS WHEN THEY GO IN THE ROOM AND ASKS FOR PAIN MEDS WHILE SHE REMAINS WITH EYES CLOSED AND FALLS BACK TO SLEEP. WILL MONITOR CLOSELY AND MEDICATE HER FOR PAIN ADEQUATELY. SHE HAS LEFT URETERAL STENT PLACED LAST TIME SHE WAS HERE ABOUT ONE MONTH AGO. SHE DID NOT FOLLOW UP WITH DR ANDUJAR BECAUSE SHE DID NOT HAVE MONEY.
[2019-07-20] MEDS: FAMOTIDINE/PF 20 MG/2 ML VIAL IV SCH ×2 (08:33→20:18)
--- NOTE | 2019-07-20 11:15 | NUR ---
NOTE DR ANDUJAR HAS BEEN PAGED FOR LEFT FLANK PAIN ON PATIENT HE PLACED URETERAL STENT IN AND HAS NOT CALLED BACK YET. PATIENT IS ON HIS CENSUS AND HIS OFFICE HAS BEEN MADE AWARE. WAS MEDICATED PRN PAIN EARLIER.
[2019-07-20] MEDS: TAMSULOSIN HCL 0.4 MG CAP.ER.24H PO SCH (20:18)
[2019-07-20] MEDS: PHENAZOPYRIDINE HCL 200 MG TABLET PO SCH (20:21)
[2019-07-21] VITALS (18 sets, daily range): BP systolic 103–135; BP diastolic 61–76
[2019-07-21 05:13] LABS: BASOPHILS % (AUTO) 0.5 % (0.0-5.0); EOSINOPHILS % (AUTO) 0.6 % (0.0-8.0); LYMPHOCYTES % (AUTO) 33.4 % (21.0-51.0); MEAN CORPUSCULAR HEMOGLOBIN 29.2 pg (27.0-33.0); MEAN CORPUSCULAR HGB CONC 34.2 g/dL (32.0-36.0); MEAN CORPUSCULAR VOLUME 85.2 fL (79-99); MONOCYTES % (AUTO) 6.4 % (3.0-13.0); NEUTROPHILS % (AUTO) 59.1 % (40.0-77.0); PLATELET COUNT (AUTO) 368 K/uL (130-400); RED BLOOD CELL COUNT(AUTO) 4.22 MIL/uL (4.00-5.50); RED CELL DISTRIBUTION WIDTH 13.3 % (11.0-15.5); WHITE BLOOD COUNT (AUTO) 13.4 K/uL (4.8-10.8)
[2019-07-21 05:29] LABS: CREATININE 0.7 mg/dL (0.5-1.5); POTASSIUM 3.3 mmol/L (3.5-5.1)
[2019-07-21] MEDS: ZOSYN 3.375GM+NS 50ML 50 ML IV SCH (05:34)
[2019-07-21] MEDS: SODIUM CHLORIDE 0.9% 1000ML 1,000 ML IV SCH ×2 (05:34→11:24)
[2019-07-21] MEDS: INSULIN HUMULIN R 100 UNIT/ML 3ML SQ SCH ×2 (06:00→12:00)
--- NOTE | 2019-07-21 08:10 | NUR ---
NOTE AAOX3. DENIES PAIN OR DISCOMFORT AT THIS TIME. SHE IS NPO AFTER SURGERY FOR SURGICAL PROCEDURE WITH DR ANDUJAR. OTHERWISE SHE REMAINS STABLE AND HAS BEEN IN CONSIDERABLY LESS AMOUNT OF PAIN SINCE ARRIVAL.
[2019-07-21] MEDS: PHENAZOPYRIDINE HCL 200 MG TABLET PO SCH (10:00)
[2019-07-21] MEDS: FAMOTIDINE/PF 20 MG/2 ML VIAL IV SCH (10:00)
[2019-07-21] MEDS ORDERED: IOHEXOL-350 50ML VIAL IV ONE (11:40)
[2019-07-21] MEDS ORDERED: MIDAZOLAM HCL 1 MG/ML 2ML VIAL ONE (12:04)
[2019-07-21] MEDS ORDERED: ROCURONIUM 10MG/1ML SYR 10 MG/ML ML ONE (12:13)
[2019-07-21] MEDS ORDERED: FENTANYL CITRATE PF 50 MCG/1 ML 2ML VIAL ONE (12:14)
[2019-07-21] MEDS ORDERED: PIPERACILLIN SODIUM/TAZOBACTAM 3.375 GM VIAL IV ONE (12:25)
[2019-07-21] MEDS ORDERED: ONDANSETRON HCL 4 MG/2 ML VIAL ONE (12:42)
[2019-07-21] MEDS ORDERED: NEOSTIGMINE 5MG/5ML SYR IV ONE (12:46)
[2019-07-21] MEDS ORDERED: GLYCOPYRROLATE 1 MG/5 ML SYRINGE ONE (12:46)
[2019-07-21] MEDS ORDERED: MEPERIDINE-PF 25 MG/ML SYG ONE ×2 (13:19→13:28)
--- NOTE | 2019-07-21 15:30 | NUR ---
NOTE CAME BACK FROM SURGERY EARLIER AND SHE HAS BEEN STABLE. C/O SOME SORENESS BUT HAS NOT REQUESTED ANYTHING EXTRA FOR PAIN. DR RUANO HAS BEEN IN ROOM TO SEE PATIENT AND HE IS GOING TO DC HER LATER TODAY. REFER TO CHART FOR ORDERS.
[2019-07-21] MEDS ORDERED: SULF1TAB42 PO (15:36)
[2019-07-21] MEDS ORDERED: ACET1TAB12 PO (15:36)
== END 2019-07-21 18:51 | disposition home or self-care (01) | DRG 660 ==
LOC: EDH 02:47 → EDHIP 02:48 → 4BH 08:42
PROVIDERS: ADMIT Internal Medicine; ATTEND Internal Medicine
PROC: 0T778DZ Dilation of Left Ureter with Intraluminal Device, Via Natural or Artificial Opening Endoscopic (ICD-10-PCS; principal; 2019-07-21 12:10)
PROC: 0TC78ZZ Extirpation of Matter from Left Ureter, Via Natural or Artificial Opening Endoscopic (ICD-10-PCS; 2019-07-21 12:10)
PROC: 0TP98DZ Removal of Intraluminal Device from Ureter, Via Natural or Artificial Opening Endoscopic (ICD-10-PCS; 2019-07-21 12:10)
DX: T83.84XA Pain due to genitourinary prosthetic devices, implants and grafts, initial encounter (principal); N20.1 Calculus of ureter; N39.0 Urinary tract infection, site not specified; Y83.8 Other surgical procedures as the cause of abnormal reaction of the patient, or of later complication, without mention of misadventure at the time of the procedure; E11.65 Type 2 diabetes mellitus with hyperglycemia; E66.9 Obesity, unspecified; K76.0 Fatty (change of) liver, not elsewhere classified; B96.1 Klebsiella pneumoniae [K. pneumoniae] as the cause of diseases classified elsewhere; Z87.440 Personal history of urinary (tract) infections; Z82.5 Family history of asthma and other chronic lower respiratory diseases; Y92.89 Other specified places as the place of occurrence of the external cause; Z87.442 Personal history of urinary calculi; Z82.49 Family history of ischemic heart disease and other diseases of the circulatory system; Z83.3 Family history of diabetes mellitus; Z90.49 Acquired absence of other specified parts of digestive tract; Z88.1 Allergy status to other antibiotic agents; Z88.8 Allergy status to other drugs, medicaments and biological substances; Z68.35 Body mass index [BMI] 35.0-35.9, adult; Z91.19 Patient's noncompliance with other medical treatment and regimen; Z59.9 Problem related to housing and economic circumstances, unspecified
CPT/HCPCS: 36415; 74176; 77002; 80048; 80053; 80305; 81001; 81025; 82360; 82948; 83605; 85025; 87040; 87077; 87088; 87186; A4354; C1758; C1769; C2617; G0378; J1170; J1815; J1885; J2175; J2250; J2270; J2405; J2543; J2710; J3010; J3490; J7030; J7120; Q9967

== ENCOUNTER 2020-07-24 04:40 | Inpatient (IN) | payer SELFPAY ==
[~2020-07-24] VITALS: Ht 165.1 cm; Wt 95.5 kg
[~2020-07-24 04:40] MED LIST changes: +ACET1TAB12 PO; -LISI-613 PO; -SULF1TAB3 PO; +SULF1TAB42 PO; -TRAM50TA4 PO
[2020-07-24 05:12] LABS: APPEARANCE,URINE Clear (CLEAR); BILIRUBIN,URINE Negative (NEGATIVE); COLOR,URINE Orange (YELLOW); GLUCOSE, URINE (UA) >=1000 mg/dL (NEGATIVE); KETONES,URINE 40 mg/dL (NEGATIVE); LEUKOCYTE ESTERASE ,URINE Negative (NEGATIVE); NITRATE,URINE Negative (NEGATIVE); OCCULT BLOOD,URINE Negative (NEGATIVE); PROTEIN,URINE Negative (NEGATIVE); UROBILINOGEN,URINE 0.2 mg/dL (0.2-1.0)
[2020-07-24 05:20] LABS: BACTERIA,URINE None Seen /HPF (None Seen); RBC,URINE None Seen /HPF (0-1)
[2020-07-24] MEDS ORDERED: METOCLOPRAMIDE 10 MG/2 ML VIAL ONE (05:21)
[2020-07-24] MEDS ORDERED: ONDANSETRON HCL 4 MG/2 ML VIAL ONE ×3 (05:22→16:58)
[2020-07-24] MEDS ORDERED: SODIUM CHLORIDE 0.9% 1000ML 1,000 ML IV ONE ×3 (05:22→12:55)
[2020-07-24 05:40] LABS: BASOPHILS % (AUTO) 0.3 % (0.0-5.0); HEMATOCRIT 42.4 % (36-48); LYMPHOCYTES % (AUTO) 14.6 % (21.0-51.0); MEAN CORPUSCULAR HEMOGLOBIN 28.7 pg (27.0-33.0); MEAN CORPUSCULAR HGB CONC 34.4 g/dL (32.0-36.0); MEAN CORPUSCULAR VOLUME 83.5 fL (79-99); MONOCYTES % (AUTO) 4.5 % (3.0-13.0); NEUTROPHILS % (AUTO) 80.1 % (40.0-77.0); PLATELET COUNT (AUTO) 402 K/uL (130-400); RED BLOOD CELL COUNT(AUTO) 5.08 MIL/uL (4.00-5.50); WHITE BLOOD COUNT (AUTO) 25.2 K/uL (4.8-10.8)
[2020-07-24 05:45] LABS: CARBON DIOXIDE 22 mmol/L (21-32); CHLORIDE 100 mmol/L (101-111); CREATININE 0.8 mg/dL (0.5-1.5); GLOMERULAR FILTR. RATE CALC 89 mL/min (>60); GLUCOSE,RANDOM 298 mg/dL (70-105); POTASSIUM 4.1 mmol/L (3.5-5.1); SODIUM SERUM 136 mmol/L (136-145); UREA NITROGEN, BLOOD 9 mg/dL (7-18)
[2020-07-24 05:50] LABS: ALANINE AMINOTRANSFERASE 33 U/L (12-78); ALBUMIN 3.6 g/dL (3.5-5.0); ASPARTATE AMINOTRANSFERASE 15 U/L (10-37); LIPASE < 50 U/L (114-286); TOTAL PROTEIN, SERUM 8.1 g/dL (6.0-8.3)
[2020-07-24 05:54] LABS: INR 0.93 (0.85-1.15); PARTIAL THROMBOPLASTIN TIME 25.7 SEC (26.3-35.5); PROTHROMBIN TIME 10.1 SEC (9.6-11.6)
[2020-07-24] MEDS ORDERED: DiphenhydrAMINE HCL 50 MG/ML VIAL ONE (06:16)
[2020-07-24] MEDS ORDERED: KETOROLAC TROMETHAMINE 30MG/ML ONE (06:16)
[2020-07-24] MEDS ORDERED: IOHEXOL-350 75 ML VIAL IV ONE (06:17)
[2020-07-24] MEDS ORDERED: MORPHINE SULFATE 4 MG/1ML SYG ONE ×2 (07:36→09:51)
[2020-07-24] MEDS ORDERED: SODIUM CHLORIDE 0.9% IV SCH (10:15)
[2020-07-24] MEDS ORDERED: GENTAMICIN SULFATE IV SCH (10:15)
[2020-07-24] MEDS ORDERED: MORPHINE SULFATE 2 MG/ML 1ML SYG IV PRN (11:30)
[2020-07-24] MEDS ORDERED: ACETAMINOPHEN 325 MG TAB PO PRN ×2 (11:30)
[2020-07-24] MEDS: SODIUM CHLORIDE 0.9% 1000ML 1,000 ML IV SCH ×2 (11:30→23:01)
[2020-07-24] MEDS ORDERED: GENTAMICIN PROTOCOL PER PHARMACY IV SCH (12:45)
[2020-07-24] MEDS ORDERED: PHARMACY COMMUNICATION MISC SCH (15:15)
[2020-07-24] MEDS: INSULIN HUMULIN R 100 UNIT/ML 3ML SQ SCH ×2 (16:30→21:18)
[2020-07-24] MEDS ORDERED: MORPHINE SULFATE 2 MG/ML 1ML SYG ONE (16:58)
[2020-07-24] MEDS: GENTAMICIN 120 MG IN 100ML NS 100 ML IV SCH (17:00)
[2020-07-24] MEDS ORDERED: INSULIN HUMULIN R 100 UNIT/ML 3ML ONE (17:17)
--- NOTE | 2020-07-24 19:27 | NUR ---
UROLOGY CONSULT. PER ER NURSE, DR CON ROGER IS AWARE OF THE CONSULT.
--- NOTE | 2020-07-24 19:40 | NUR ---
SHIFT ROUNDS: Pt. in bed alert and awake was talking with someone on the phone. Resting well at this time. Plan of care continued. No apparent distress or discomfort noted.
[2020-07-24 19:48] VITALS: BP 132/71
[2020-07-24] MEDS: FAMOTIDINE/PF 20 MG/2 ML VIAL IV SCH (21:09)
[2020-07-24] MEDS ORDERED: KETOROLAC TROMETHAMINE 15MG/ML IV SCH (23:00)
[2020-07-24 23:43] VITALS: BP 135/61
[2020-07-25] MEDS: GENTAMICIN 120 MG IN 100ML NS 100 ML IV SCH (00:34)
[2020-07-25] MEDS: ONDANSETRON HCL 4 MG/2 ML VIAL IV PRN ×3 (02:42→13:58)
[2020-07-25] MEDS: HYDROMORPHONE 1 MG/1 ML AMP IVP PRN ×3 (02:44→21:39)
[2020-07-25 04:00] VITALS: BP 122/67
[2020-07-25] MEDS: INSULIN HUMULIN R 100 UNIT/ML 3ML SQ SCH ×4 (05:36→20:18)
[2020-07-25] MEDS ORDERED: GLIP10TA9 PO (05:45)
[2020-07-25 07:59] LABS: BASOPHILS % (AUTO) 0.5 % (0.0-5.0); EOSINOPHILS % (AUTO) 0.8 % (0.0-8.0); HEMATOCRIT 36.5 % (36-48); LYMPHOCYTES % (AUTO) 35.2 % (21.0-51.0); MEAN CORPUSCULAR HEMOGLOBIN 28.6 pg (27.0-33.0); MEAN CORPUSCULAR HGB CONC 33.4 g/dL (32.0-36.0); MEAN CORPUSCULAR VOLUME 85.7 fL (79-99); MONOCYTES % (AUTO) 7.5 % (3.0-13.0); NEUTROPHILS % (AUTO) 55.6 % (40.0-77.0); PLATELET COUNT (AUTO) 314 K/uL (130-400); RED BLOOD CELL COUNT(AUTO) 4.26 MIL/uL (4.00-5.50); RED CELL DISTRIBUTION WIDTH 13.3 % (11.0-15.5); WHITE BLOOD COUNT (AUTO) 13.8 K/uL (4.8-10.8)
[2020-07-25 08:00] VITALS: BP 149/84
[2020-07-25 08:11] LABS: ALBUMIN 2.8 g/dL (3.5-5.0); BILIRUBIN,TOTAL 0.5 mg/dL (0.2-1.0); CREATININE 0.8 mg/dL (0.5-1.5); POTASSIUM 3.8 mmol/L (3.5-5.1); TOTAL PROTEIN, SERUM 6.2 g/dL (6.0-8.3)
--- NOTE | 2020-07-25 10:05 | NUR ---
CHART CHECK COMPLETED. Pt IS A 30 Y.O. FEMALE ADMITTED SECONDARY TO HACUTE PYELONEPHRITIS WITH HYDRONEPHROSIS, GROSSLY ELEVATED LEUKOCYTOSIS. Pt HAS A PAST MEDICAL HISTORY SIGNIFICANT FOR DM, RECURRENT KIDNEY STONES, KIDNEY STENTS, AND APPENDECTOMY. Pt CURRENTLY ON FULL LIQUID DIET. PLEASE REQUEST FORMAL SKILLED SPEECH/SWALLOW EVALUATION IF Pt PRESENTS WITH +S/S OF ASPIRATION SUCH COUGH RESPONSE, THROAT CLEAR, OR WET VOCAL QUALITY DURING P.O. Addendum: 07/25/20 at 1009 by FAVIAN BERG, [facility] Amended: Links added.
[2020-07-25] MEDS ORDERED: GLUCAGON 1MG KIT 1 MG ML IM PRN (11:00)
[2020-07-25] MEDS ORDERED: VANCOMYCIN PROTOCOL PER PHARMACY IV SCH (11:00)
[2020-07-25] MEDS ORDERED: ZOSYN 3.375GM+NS 50ML 50 ML IV SCH (11:00)
[2020-07-25] MEDS ORDERED: DEXTROSE 50%-WATER 50 ML DISP.SYRIN IV PRN (11:00)
[2020-07-25] MEDS ORDERED: COMPOUND IV REFRIGERATED 1 EACH IVSOLN MISC PRN (11:15)
[2020-07-25] MEDS: FAMOTIDINE/PF 20 MG/2 ML VIAL IV SCH ×2 (11:32→20:02)
[2020-07-25] MEDS: MEROPENEM 1 GM VIAL IVP SCH ×2 (11:32→20:02)
--- NOTE | 2020-07-25 11:37 | NUR ---
[facility] CM met with pt and girlfriend in room discussed dc plans. Pt is independent prior to admission, lives with her girlfriend Liz Wilkins . Denies any equipments/services. Feels safe to go back home, still drives, girlfriend and father able to assist with transportation and needs as necessary. DC plan to home once stable. CM to continue to follow up. Addendum: 07/25/20 at 1138 by MIRIAN WILKINS LVN CM Amended: Links added.
[2020-07-25 11:52] VITALS: BP 138/96
[2020-07-25] MEDS ORDERED: VANCOMYCIN 2 GM in SODIUM CHLORIDE 0.9% 500ML 500 ML IV ONE (12:00)
[2020-07-25] MEDS: KETOROLAC TROMETHAMINE 15MG/ML IV PRN ×2 (13:58→20:02)
[2020-07-25 16:00] VITALS: BP 132/89
--- NOTE | 2020-07-25 19:40 | NUR ---
Dr. Esquivel discontinued Gentamicin, that is why trough and peak were not taken. He then started Kristin Carbajal on Vanco and Merrem. Dr. Pena saw the patient and said to discontinue Vanco and only keep Merrem. The orders for Vanco and Gentamicin were both discontinued and Merrem was kept in place.
[2020-07-25] MEDS ORDERED: VANCOMYCIN 750MG + NS 250 ML IV SCH ×2 (20:00)
--- NOTE | 2020-07-25 20:05 | NUR ---
MEDS SHIFT ASSESSMENT DONE, PLEASE REFER TO CHART. PT CLAIMS OF HAVING LEFT FLANK PAINS. DUE MEDS ADMINISTERED, TORADOL IV GIVEN FOR PAIN. PT TOLERATED MEDS WELL. CALL LIGHT WITHIN REACH. WILL RE-ASSESS PT. Addendum: 07/25/20 at 2334 by MARIO LANG RN RN Amended: Links added.
[2020-07-25] MEDS: SODIUM CHLORIDE 0.9% 1000ML 1,000 ML IV SCH (20:10)
[2020-07-25 20:16] VITALS: BP 135/86
[2020-07-25] MEDS: INSULIN GLARGINE 100 UNITS/ML 10 ML VIAL SQ SCH (20:18)
--- NOTE | 2020-07-25 21:39 | NUR ---
PAIN PT RE-ASSESSED OF PAIN AND CLAIMS THAT HER PAIN IS STILL INTENSE. MEDICATED WITH DILAUDID IV. KEPT COMFORTABLE IN BED. CALL LIGHT WITHIN REACH. WILL RE-ASSESS PT.
[2020-07-26 00:24] VITALS: BP 124/71
--- NOTE | 2020-07-26 02:00 | NUR ---
ROUNDS PT RESTING WELL, FAIRLY ASLEEP. NO DISTRESS NOTED. KEPT UNDISTURBED FOR NOW. WILL CONTINUE TO MONITOR PT.
[2020-07-26] MEDS: MEROPENEM 1 GM VIAL IVP SCH ×3 (03:12→20:13)
[2020-07-26] MEDS: SODIUM CHLORIDE 0.9% 1000ML 1,000 ML IV SCH ×3 (03:13→13:30)
[2020-07-26] MEDS: HYDROMORPHONE 1 MG/1 ML AMP IVP PRN (03:14)
[2020-07-26 04:03] LABS: BASOPHILS % (AUTO) 0.3 % (0.0-5.0); EOSINOPHILS % (AUTO) 0.4 % (0.0-8.0); HEMATOCRIT 37.7 % (36-48); LYMPHOCYTES % (AUTO) 24.1 % (21.0-51.0); MEAN CORPUSCULAR HEMOGLOBIN 28.7 pg (27.0-33.0); MEAN CORPUSCULAR HGB CONC 33.7 g/dL (32.0-36.0); MEAN CORPUSCULAR VOLUME 85.3 fL (79-99); MONOCYTES % (AUTO) 6.9 % (3.0-13.0); NEUTROPHILS % (AUTO) 67.9 % (40.0-77.0); PLATELET COUNT (AUTO) 351 K/uL (130-400); RED BLOOD CELL COUNT(AUTO) 4.42 MIL/uL (4.00-5.50); RED CELL DISTRIBUTION WIDTH 13.2 % (11.0-15.5); WHITE BLOOD COUNT (AUTO) 17.3 K/uL (4.8-10.8)
[2020-07-26 04:08] LABS: HEMOGLOBIN A1C 8.3 % (4.0-6.0)
[2020-07-26 04:24] VITALS: BP 159/81
[2020-07-26 04:26] LABS: BILIRUBIN,TOTAL 0.5 mg/dL (0.2-1.0); CREATININE 0.8 mg/dL (0.5-1.5); POTASSIUM 3.6 mmol/L (3.5-5.1); TOTAL PROTEIN, SERUM 6.8 g/dL (6.0-8.3)
[2020-07-26] MEDS: KETOROLAC TROMETHAMINE 15MG/ML IV PRN (05:45)
--- NOTE | 2020-07-26 05:45 | NUR ---
PAIN PT CLAIMS OF SINUS PRESSURE AND PAIN ON HER HEAD. MEDICATED WITH TORADOL IV. NEW IV BAG HUNG. ASSURED TO LET MD ON AM ROUNDS KNOW OF COMPLAINTS. WILL ENDORSE TO AM NURSE. FOR MORE CARE.
[2020-07-26] MEDS: INSULIN HUMULIN R 100 UNIT/ML 3ML SQ SCH ×4 (06:40→20:44)
[2020-07-26 08:18] VITALS: BP 138/62
[2020-07-26] MEDS ORDERED: NON-FORMULARY MEDICATION 1 EACH (Glipizide 10 MG) PO SCH (09:00)
[2020-07-26] MEDS: FAMOTIDINE/PF 20 MG/2 ML VIAL IV SCH ×2 (10:39→20:13)
[2020-07-26] MEDS: GLIPIZIDE 5 MG TABLET PO SCH (10:39)
[2020-07-26] MEDS: ACETAMINOPHEN-CODEINE 300/30MG TAB PO PRN (10:55)
[2020-07-26 11:52] VITALS: BP 136/73
[2020-07-26] MEDS ORDERED: KETOROLAC TROMETHAMINE 30MG/ML ONE (16:02)
[2020-07-26 17:49] VITALS: BP_SYST 139; BP_SYST 153; BP_DIAS 41; BP_DIAS 68
--- NOTE | 2020-07-26 19:47 | NUR ---
dr rona rea came
--- NOTE | 2020-07-26 19:53 | NUR ---
PUBLIC HEALTH INFORMATICIAN Paged hospitalist pt said tylenol # 3 and toradol does not work,she also wants something for sleep.she also c/o her nose feels stuffy.Jojo Barrera called back and will place order.
[2020-07-26] MEDS ORDERED: SODIUM CHLORIDE 45 ML SPRY NS SCH (20:00)
[2020-07-26] MEDS ORDERED: HYDROMORPHONE HCL 0.5 MG/0.5 ML ML IVP SCH (20:00)
[2020-07-26] MEDS ORDERED: TEMAZEPAM 15 MG CAPSULE PO SCH (20:00)
[2020-07-26] MEDS: PEG 3350/NA SULF,BICARB,CL/KCL 4000 ML SOLN PO SCH (20:13)
[2020-07-26] MEDS: ONDANSETRON HCL 4 MG/2 ML VIAL IV PRN (20:13)
--- NOTE | 2020-07-26 20:13 | NUR ---
GOLYTELY Golytely half gal. given as prep for IVP in am.
[2020-07-26 20:28] VITALS: BP 125/80
--- NOTE | 2020-07-26 20:35 | NUR ---
PAIN Pt c/o of severe pain,one time order of dilaudid 0.5 mg iv given.
[2020-07-26] MEDS: INSULIN GLARGINE 100 UNITS/ML 10 ML VIAL SQ SCH (20:39)
--- NOTE | 2020-07-26 21:35 | NUR ---
MED EFFECT Pt calm,awake,talking on the phone,denies pain.
--- NOTE | 2020-07-26 23:10 | NUR ---
SLEEP Temazepam given for c/o of unable to sleep.
[2020-07-27] VITALS (7 sets, daily range): BP systolic 124–133; BP diastolic 65–87
[2020-07-27] MEDS: SODIUM CHLORIDE 0.9% 1000ML 1,000 ML IV SCH ×4 (00:02→21:06)
--- NOTE | 2020-07-27 01:10 | NUR ---
MED EFFECT Pt calm,asleep,arousable.
[2020-07-27] MEDS: MEROPENEM 1 GM VIAL IVP SCH ×3 (03:36→20:28)
[2020-07-27] MEDS ORDERED: KETOROLAC TROMETHAMINE 30MG/ML ONE ×2 (04:57→15:05)
--- NOTE | 2020-07-27 05:07 | NUR ---
PAIN Pt c/o of pain,Toradol given.
[2020-07-27 06:08] LABS: BASOPHILS % (AUTO) 0.3 % (0.0-5.0); EOSINOPHILS % (AUTO) 0.4 % (0.0-8.0); HEMATOCRIT 37.8 % (36-48); LYMPHOCYTES % (AUTO) 22.8 % (21.0-51.0); MEAN CORPUSCULAR HEMOGLOBIN 28.4 pg (27.0-33.0); MEAN CORPUSCULAR HGB CONC 33.3 g/dL (32.0-36.0); MEAN CORPUSCULAR VOLUME 85.3 fL (79-99); MONOCYTES % (AUTO) 6.7 % (3.0-13.0); NEUTROPHILS % (AUTO) 69.4 % (40.0-77.0); PLATELET COUNT (AUTO) 352 K/uL (130-400); RED BLOOD CELL COUNT(AUTO) 4.43 MIL/uL (4.00-5.50); RED CELL DISTRIBUTION WIDTH 13.1 % (11.0-15.5); WHITE BLOOD COUNT (AUTO) 18.4 K/uL (4.8-10.8)
[2020-07-27 06:17] LABS: ALBUMIN 2.8 g/dL (3.5-5.0); BILIRUBIN,TOTAL 0.5 mg/dL (0.2-1.0); CREATININE 0.7 mg/dL (0.5-1.5); POTASSIUM 3.3 mmol/L (3.5-5.1); TOTAL PROTEIN, SERUM 6.6 g/dL (6.0-8.3)
[2020-07-27] MEDS: INSULIN HUMULIN R 100 UNIT/ML 3ML SQ SCH ×4 (06:21→20:19)
[2020-07-27] MEDS ORDERED: IOHEXOL 350 MG/ML 100ML INFUS..BTL IV ONE (08:10)
[2020-07-27] MEDS: FAMOTIDINE/PF 20 MG/2 ML VIAL IV SCH ×2 (10:55→21:05)
[2020-07-27] MEDS: GLIPIZIDE 5 MG TABLET PO SCH (10:55)
[2020-07-27] MEDS: ACETAMINOPHEN-CODEINE 300/30MG TAB PO PRN ×2 (10:56→17:39)
[2020-07-27] MEDS: ONDANSETRON HCL 4 MG/2 ML VIAL IV PRN (17:38)
[2020-07-27] MEDS: PEG 3350/NA SULF,BICARB,CL/KCL 4000 ML SOLN PO SCH (20:00)
[2020-07-27] MEDS: INSULIN GLARGINE 100 UNITS/ML 10 ML VIAL SQ SCH (21:10)
[2020-07-28] MEDS: ONDANSETRON HCL 4 MG/2 ML VIAL IV PRN (00:01)
[2020-07-28] MEDS: ACETAMINOPHEN-CODEINE 300/30MG TAB PO PRN ×3 (00:02→15:59)
[2020-07-28] MEDS ORDERED: TEMAZEPAM 15 MG CAPSULE ONE (02:27)
[2020-07-28] MEDS ORDERED: TEMAZEPAM 15 MG CAPSULE PO ONE (02:30)
[2020-07-28 03:55] VITALS: BP 106/67
[2020-07-28 04:03] LABS: BASOPHILS % (AUTO) 0.5 % (0.0-5.0); EOSINOPHILS % (AUTO) 0.7 % (0.0-8.0); HEMATOCRIT 36.4 % (36-48); LYMPHOCYTES % (AUTO) 26.3 % (21.0-51.0); MEAN CORPUSCULAR HEMOGLOBIN 28.7 pg (27.0-33.0); MEAN CORPUSCULAR HGB CONC 33.8 g/dL (32.0-36.0); MEAN CORPUSCULAR VOLUME 84.8 fL (79-99); MONOCYTES % (AUTO) 6.7 % (3.0-13.0); NEUTROPHILS % (AUTO) 65.4 % (40.0-77.0); PLATELET COUNT (AUTO) 332 K/uL (130-400); RED BLOOD CELL COUNT(AUTO) 4.29 MIL/uL (4.00-5.50); RED CELL DISTRIBUTION WIDTH 13.1 % (11.0-15.5); WHITE BLOOD COUNT (AUTO) 17.1 K/uL (4.8-10.8)
[2020-07-28] MEDS: SODIUM CHLORIDE 0.9% 1000ML 1,000 ML IV SCH (04:17)
[2020-07-28 04:20] LABS: ALBUMIN 2.8 g/dL (3.5-5.0); BILIRUBIN,TOTAL 0.3 mg/dL (0.2-1.0); CREATININE 0.8 mg/dL (0.5-1.5); POTASSIUM 3.6 mmol/L (3.5-5.1); TOTAL PROTEIN, SERUM 6.4 g/dL (6.0-8.3)
[2020-07-28] MEDS: MEROPENEM 1 GM VIAL IVP SCH (05:44)
[2020-07-28] MEDS: INSULIN HUMULIN R 100 UNIT/ML 3ML SQ SCH ×2 (06:13→11:30)
[2020-07-28 07:30] VITALS: BP 117/63
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
[2020-07-28] MEDS: FAMOTIDINE/PF 20 MG/2 ML VIAL IV SCH (09:55)
[2020-07-28] MEDS: GLIPIZIDE 5 MG TABLET PO SCH (09:55)
[2020-07-28] MEDS ORDERED: MAG HYDROX/AL HYDROX/SIMETH ES 30 ML SUSP UDCUP PO PRN (10:45)
[2020-07-28 11:00] VITALS: BP 127/81
[2020-07-28] MEDS ORDERED: MEROPENEM 1 GM VIAL IVP SCH (14:00)
[2020-07-28] MEDS ORDERED: LORAZEPAM 0.5 MG TABLET ONE (15:55)
[2020-07-28 16:00] VITALS: BP 112/76
--- NOTE | 2020-07-28 17:00 | NUR ---
NOTE DISCHARGE INSTRUCTIONS GIVEN TO PATIENT AT THIS TIME. REFER TO CHART FOR DETAILS.
[2020-07-28] MEDS ORDERED: LORAZEPAM 0.5 MG TABLET PO ONE (17:15)
== END 2020-07-28 17:00 | disposition home or self-care (01) | DRG 690 ==
LOC: EDH 04:40 → EDHIP 04:41 → 3BH 18:56
PROVIDERS: ADMIT Hospitalist; ATTEND Hospitalist
DX: N13.6 Pyonephrosis (principal); I10 Essential (primary) hypertension; F17.200 Nicotine dependence, unspecified, uncomplicated; E11.65 Type 2 diabetes mellitus with hyperglycemia; K57.90 Diverticulosis of intestine, part unspecified, without perforation or abscess without bleeding; M47.815 Spondylosis without myelopathy or radiculopathy, thoracolumbar region; E66.9 Obesity, unspecified; Z68.35 Body mass index [BMI] 35.0-35.9, adult; Z88.8 Allergy status to other drugs, medicaments and biological substances; Z87.442 Personal history of urinary calculi; Z91.19 Patient's noncompliance with other medical treatment and regimen; Z83.3 Family history of diabetes mellitus; Z82.5 Family history of asthma and other chronic lower respiratory diseases; Z82.49 Family history of ischemic heart disease and other diseases of the circulatory system
CPT/HCPCS: 36415; 71045; 74177; 74400; 80053; 80170; 81001; 81025; 82948; 83036; 83605; 83690; 84145; 85025; 85610; 85730; 87040; 87088; G0378; J1170; J1200; J1580; J1815; J1885; J2185; J2270; J2405; J2765; J3370; J3490; J7030; J7040; J7050; Q9967

== ENCOUNTER 2020-09-15 00:35 | Emergency (ER) | payer OTHER ==
[~2020-09-15 00:35] MED LIST changes: -ACET1TAB12 PO; -SULF1TAB42 PO
[2020-09-15 03:20] LABS: BASOPHILS % (AUTO) 0.4 % (0.0-5.0); EOSINOPHILS % (AUTO) 0.5 % (0.0-8.0); HEMATOCRIT 41.5 % (36-48); LYMPHOCYTES % (AUTO) 25.8 % (21.0-51.0); MEAN CORPUSCULAR HEMOGLOBIN 29.7 pg (27.0-33.0); MEAN CORPUSCULAR HGB CONC 34.7 g/dL (32.0-36.0); MEAN CORPUSCULAR VOLUME 85.6 fL (79-99); MONOCYTES % (AUTO) 4.7 % (3.0-13.0); NEUTROPHILS % (AUTO) 68.1 % (40.0-77.0); PLATELET COUNT (AUTO) 372 K/uL (130-400); RED BLOOD CELL COUNT(AUTO) 4.85 MIL/uL (4.00-5.50); WHITE BLOOD COUNT (AUTO) 16.9 K/uL (4.8-10.8)
[2020-09-15 03:25] LABS: APPEARANCE,URINE Clear (CLEAR); BILIRUBIN,URINE Negative (NEGATIVE); COLOR,URINE Yellow (YELLOW); GLUCOSE, URINE (UA) >=1000 mg/dL (NEGATIVE); KETONES,URINE >=80 mg/dL (NEGATIVE); LEUKOCYTE ESTERASE ,URINE Negative (NEGATIVE); NITRATE,URINE Negative (NEGATIVE); OCCULT BLOOD,URINE Negative (NEGATIVE); PROTEIN,URINE Negative (NEGATIVE); UROBILINOGEN,URINE 0.2 mg/dL (0.2-1.0)
[2020-09-15 03:28] LABS: CARBON DIOXIDE 24 mmol/L (21-32); CHLORIDE 99 mmol/L (101-111); CREATININE 0.6 mg/dL (0.5-1.5); GLOMERULAR FILTR. RATE CALC 124 mL/min (>60); GLUCOSE,RANDOM 280 mg/dL (70-105); POTASSIUM 3.8 mmol/L (3.5-5.1); SODIUM SERUM 135 mmol/L (136-145); UREA NITROGEN, BLOOD 9 mg/dL (7-18)
[2020-09-15 03:32] LABS: ALANINE AMINOTRANSFERASE 16 U/L (12-78); ALBUMIN 3.5 g/dL (3.5-5.0); ASPARTATE AMINOTRANSFERASE 11 U/L (10-37); BILIRUBIN,TOTAL 0.6 mg/dL (0.2-1.0); TOTAL PROTEIN, SERUM 7.6 g/dL (6.0-8.3)
[2020-09-15 03:34] LABS: BACTERIA,URINE Few /HPF (None Seen); RBC,URINE 0-1 /HPF (0-1); WBC,URINE 0-1 /HPF (0-1); YEAST,URINE BUDDING Moderate /HPF (None Seen)
[2020-09-15 03:42] LABS: LIPASE < 50 U/L (114-286)
[2020-09-15] MEDS ORDERED: ONDANSETRON 4MG INJ ONE (04:08)
[2020-09-15] MEDS ORDERED: MORPHINE 4 MG SYG ONE (04:56)
== END 2020-09-15 09:07 | disposition home or self-care (01) ==
LOC: EDH 00:35
DX: R10.9 Unspecified abdominal pain (principal); E11.65 Type 2 diabetes mellitus with hyperglycemia; Z20.828 Contact with and (suspected) exposure to other viral communicable diseases; Z90.49 Acquired absence of other specified parts of digestive tract; Z88.1 Allergy status to other antibiotic agents
CPT/HCPCS: 36415; 71045; 74176; 80053; 81001; 81025; 83690; 85025; 87426; 96374; 96375; 99285; J2270; J2405; U0003

== ENCOUNTER 2020-12-18 07:40 | Emergency (ER) | payer OTHER ==
[2020-12-18] MEDS ORDERED: ACETAMINOPHEN EXTRA STRENGTH 500 MG TABLET ONE (09:12)
== END 2020-12-18 10:43 | disposition home or self-care (01) ==
LOC: EDH 07:40
DX: S00.12XA Contusion of left eyelid and periocular area, initial encounter (principal); S00.11XA Contusion of right eyelid and periocular area, initial encounter; J20.9 Acute bronchitis, unspecified; E11.9 Type 2 diabetes mellitus without complications; Z72.0 Tobacco use; Z88.1 Allergy status to other antibiotic agents; Z88.6 Allergy status to analgesic agent; Y04.2XXA Assault by strike against or bumped into by another person, initial encounter; Y93.89 Activity, other specified; Y92.89 Other specified places as the place of occurrence of the external cause; Y99.8 Other external cause status
CPT/HCPCS: 70486; 71045; 81025

== ENCOUNTER 2021-05-31 11:50 | Emergency (ER) | payer MEDICAID ==
[~2021-05-31] VITALS: Ht 165.1 cm; Wt 86.2 kg
[2021-05-31 12:12] LABS: BASOPHILS % (AUTO) 0.6 % (0.0-5.0); EOSINOPHILS % (AUTO) 0.7 % (0.0-8.0); HEMATOCRIT 41.7 % (36-48); LYMPHOCYTES % (AUTO) 20.2 % (21.0-51.0); MEAN CORPUSCULAR HEMOGLOBIN 30.4 pg (27.0-33.0); MEAN CORPUSCULAR VOLUME 86.9 fL (79-99); MONOCYTES % (AUTO) 5.6 % (3.0-13.0); NEUTROPHILS % (AUTO) 72.5 % (40.0-77.0); PLATELET COUNT (AUTO) 268 K/uL (130-400); RED CELL DISTRIBUTION WIDTH 12.6 % (11.0-15.5); WHITE BLOOD COUNT (AUTO) 12.6 K/uL (4.8-10.8)
[2021-05-31 12:29] LABS: ALBUMIN 3.1 g/dL (3.5-5.0); BILIRUBIN,TOTAL 0.7 mg/dL (0.2-1.0); CREATININE 0.9 mg/dL (0.5-1.5); POTASSIUM 4.1 mmol/L (3.5-5.1); TOTAL PROTEIN, SERUM 7.3 g/dL (6.0-8.3)
[2021-05-31] MEDS ORDERED: 0.9%NACL 1000ML 1,000 ML IV ONE ×2 (12:30→13:30)
[2021-05-31] MEDS ORDERED: 0.9%NACL 1000ML 1,000 ML IV SCH (12:30)
[2021-05-31] MEDS ORDERED: ONDANSETRON 4MG INJ IVP SCH (12:30)
[2021-05-31] MEDS ORDERED: KETOROLAC 30MG VIAL (30MG/ML) IV ONE (12:30)
[2021-05-31] MEDS ORDERED: KETOROLAC 30MG VIAL (30MG/ML) IV SCH (12:30)
[2021-05-31] MEDS ORDERED: ONDANSETRON 4MG INJ IVP ONE (12:30)
[2021-05-31 12:42] VITALS: BP 108/86
[2021-05-31 12:47] LABS: APPEARANCE,URINE Clear (CLEAR); BILIRUBIN,URINE Negative (NEGATIVE); COLOR,URINE Yellow (YELLOW); GLUCOSE, URINE (UA) >=1000 mg/dL (NEGATIVE); KETONES,URINE 15 mg/dL (NEGATIVE); LEUKOCYTE ESTERASE ,URINE Negative (NEGATIVE); NITRATE,URINE Negative (NEGATIVE); OCCULT BLOOD,URINE Negative (NEGATIVE); PROTEIN,URINE Negative (NEGATIVE); UROBILINOGEN,URINE 0.2 mg/dL (0.2-1.0)
[2021-05-31] MEDS ORDERED: INSULIN HUMULIN R 100 UNIT/ML 3ML SQ ONE ×2 (13:00→14:30)
[2021-05-31 13:05] LABS: BACTERIA,URINE Rare /HPF (None Seen); SQUAMOUS EPITHELIAL CELL,UR Rare /HPF (0-2); WBC,URINE 0-1 /HPF (0-1)
[2021-05-31 13:15] LABS: HCG,QUAL RESULT NEGATIVE (NEGATIVE)
[2021-05-31 14:32] VITALS: BP 108/66
[2021-05-31] MEDS ORDERED: METF-444 PO (14:57)
[2021-05-31] MEDS ORDERED: DICY20TA2 PO (14:57)
== END 2021-05-31 15:20 | disposition home or self-care (01) ==
LOC: EDH 11:50
DX: R10.9 Unspecified abdominal pain (principal); E11.65 Type 2 diabetes mellitus with hyperglycemia; E86.0 Dehydration; R00.0 Tachycardia, unspecified; Z20.822 Contact with and (suspected) exposure to COVID-19; E66.9 Obesity, unspecified; Z68.31 Body mass index [BMI] 31.0-31.9, adult; Z79.84 Long term (current) use of oral hypoglycemic drugs; Z87.442 Personal history of urinary calculi; Z88.1 Allergy status to other antibiotic agents
CPT/HCPCS: 36415; 74176; 80053; 81001; 81025; 82010; 82948 ×2; 83690; 85025; 86140; 87635; 96361; 96372 ×2; 96374; 96375; 99285; C9803; J1815 ×2; J1885; J2405; J7030 ×2

== ENCOUNTER 2022-10-22 11:35 | Emergency (ER) | payer MEDICAID ==
[~2022-10-22] VITALS: Ht 165.1 cm; Wt 74.8 kg
[~2022-10-22 11:35] MED LIST changes: +DICY20TA2 PO; +METF-444 PO
[2022-10-22 12:50] LABS: BASOPHILS % (AUTO) 0.5 % (0.0-5.0); EOSINOPHILS % (AUTO) 0.4 % (0.0-8.0); HEMATOCRIT 41.9 % (36-48); LYMPHOCYTES % (AUTO) 22.5 % (21.0-51.0); MEAN CORPUSCULAR HEMOGLOBIN 29.2 pg (27.0-33.0); MEAN CORPUSCULAR HGB CONC 34.6 g/dL (32.0-36.0); MEAN CORPUSCULAR VOLUME 84.5 fL (79-99); MONOCYTES % (AUTO) 9.3 % (3.0-13.0); NEUTROPHILS % (AUTO) 66.8 % (40.0-77.0); PLATELET COUNT (AUTO) 386 K/uL (130-400); RED BLOOD CELL COUNT(AUTO) 4.96 MIL/uL (4.00-5.50); WHITE BLOOD COUNT (AUTO) 13.3 K/uL (4.8-10.8)
[2022-10-22 12:58] LABS: HCG,QUALITATIVE URINE NEGATIVE (NEGATIVE)
[2022-10-22 13:05] LABS: ALBUMIN 2.9 g/dL (3.5-5.0); POTASSIUM 3.6 mmol/L (3.5-5.1)
[2022-10-22 13:06] LABS: TOTAL PROTEIN, SERUM 8.1 g/dL (6.0-8.3)
[2022-10-22 13:13] LABS: APPEARANCE,URINE CLEAR (CLEAR); BILIRUBIN,URINE NEGATIVE (NEGATIVE); COLOR,URINE COLORLESS (YELLOW); GLUCOSE, URINE (UA) >=1000 mg/dL (NEGATIVE); KETONES,URINE 10 mg/dL (NEGATIVE); LEUKOCYTE ESTERASE ,URINE NEGATIVE Leu/uL (NEGATIVE); NITRATE,URINE NEGATIVE (NEGATIVE); OCCULT BLOOD,URINE NEGATIVE (NEGATIVE); PROTEIN,URINE NEGATIVE (NEGATIVE); UROBILINOGEN,URINE 0.2 mg/dL (0.2-1.0)
[2022-10-22 13:15] LABS: BACTERIA,URINE RARE /HPF (None Seen); SQUAMOUS EPITHELIAL CELL,UR FEW /HPF (0-2)
[2022-10-22] MEDS ORDERED: MORPHINE 4 MG SYG IVP ONE (13:30)
[2022-10-22] MEDS ORDERED: 0.9% NACL 500ML IV.SOLN 500 ML IV ONE (13:30)
[2022-10-22] MEDS ORDERED: INSULIN HUMULIN R 100 UNIT/ML 3ML IV ONE (13:30)
[2022-10-22] MEDS ORDERED: KETOROLAC 15MG/ML VIAL (15MG/ML) IV ONE (13:30)
[2022-10-22] MEDS ORDERED: ONDANSETRON 4MG INJ IVP ONE (13:30)
[2022-10-22] MEDS ORDERED: 0.9%NACL 1000ML 1,000 ML IV ONE (13:30)
[2022-10-22] MEDS ORDERED: MORPHINE 2 MG SYG IVP ONE (15:00)
[2022-10-22] MEDS ORDERED: POLY17PO4 PO (15:07)
[2022-10-22] MEDS ORDERED: ONDA4TAB10 PO (15:07)
[2022-10-22 15:37] VITALS: BP 123/61
== END 2022-10-22 15:36 | disposition home or self-care (01) ==
LOC: EDH 11:35
DX: E11.65 Type 2 diabetes mellitus with hyperglycemia (principal); K59.00 Constipation, unspecified; E66.9 Obesity, unspecified; Z90.49 Acquired absence of other specified parts of digestive tract; Z68.27 Body mass index [BMI] 27.0-27.9, adult
CPT/HCPCS: 99285; 74176; 96374; 96375; 96361; 80053; 83690; 85025; 82948; 81001; 81025; 36415; 96376; J1815; J7030; J2405; J2270; J1885

== ENCOUNTER 2022-12-17 01:47 | Emergency (ER) | payer MEDICAID ==
[~2022-12-17] VITALS: Ht 165.1 cm; Wt 71.7 kg
[~2022-12-17 01:47] MED LIST changes: +ONDA4TAB10 PO; +POLY17PO4 PO
[2022-12-17 02:45] LABS: BASOPHILS % (AUTO) 0.6 % (0.0-5.0); EOSINOPHILS % (AUTO) 0.5 % (0.0-8.0); HEMATOCRIT 41.8 % (36-48); LYMPHOCYTES % (AUTO) 39.3 % (21.0-51.0); MEAN CORPUSCULAR HEMOGLOBIN 29.2 pg (27.0-33.0); MEAN CORPUSCULAR HGB CONC 34.7 g/dL (32.0-36.0); MEAN CORPUSCULAR VOLUME 84.3 fL (79-99); MONOCYTES % (AUTO) 5.1 % (3.0-13.0); PLATELET COUNT (AUTO) 498 K/uL (130-400); RED BLOOD CELL COUNT(AUTO) 4.96 MIL/uL (4.00-5.50); RED CELL DISTRIBUTION WIDTH 12.2 % (11.0-15.5); WHITE BLOOD COUNT (AUTO) 15.8 K/uL (4.8-10.8)
[2022-12-17 02:56] LABS: CARBON DIOXIDE 19 mmol/L (21-32); CHLORIDE 101 mmol/L (101-111); CREATININE 0.7 mg/dL (0.5-1.5); GLOMERULAR FILTR. RATE CALC 117 mL/min (>90); GLUCOSE,RANDOM 353 mg/dL (70-105); POTASSIUM 3.4 mmol/L (3.5-5.1); SODIUM SERUM 137 mmol/L (136-145); UREA NITROGEN, BLOOD 5 mg/dL (7-18)
[2022-12-17 03:00] LABS: HCG,QUALITATIVE URINE NEGATIVE (NEGATIVE)
[2022-12-17 03:00] LABS: ALANINE AMINOTRANSFERASE 16 U/L (12-78); ALBUMIN 3.5 g/dL (3.5-5.0); ASPARTATE AMINOTRANSFERASE 5 U/L (10-37); TOTAL PROTEIN, SERUM 8.8 g/dL (6.0-8.3)
[2022-12-17 03:02] LABS: ACETAMINOPHEN < 1 mcg/mL (10-30); SALICYLATE < 2.8 mg/dL (2.8-20.0)
[2022-12-17 03:05] LABS: APPEARANCE,URINE CLEAR (CLEAR); BILIRUBIN,URINE NEGATIVE (NEGATIVE); COLOR,URINE COLORLESS (YELLOW); GLUCOSE, URINE (UA) >=1000 mg/dL (NEGATIVE); KETONES,URINE 5 mg/dL (NEGATIVE); LEUKOCYTE ESTERASE ,URINE 25 Leu/uL (NEGATIVE); NITRATE,URINE NEGATIVE (NEGATIVE); OCCULT BLOOD,URINE NEGATIVE (NEGATIVE); PROTEIN,URINE NEGATIVE (NEGATIVE); UROBILINOGEN,URINE 0.2 mg/dL (0.2-1.0)
[2022-12-17 03:06] LABS: BACTERIA,URINE FEW /HPF (None Seen); MUCUS,URINE RARE LPF (None Seen); RBC,URINE 0-1 /HPF (0-1); SQUAMOUS EPITHELIAL CELL,UR RARE /HPF (0-2)
[2022-12-17 03:08] LABS: AMPHET/METH SCREEN,URINE NEGATIVE (NEGATIVE); BARBITURATE SCREEN, URINE NEGATIVE (NEGATIVE); BENZODIAZEPINES SCREEN,URINE NEGATIVE (NEGATIVE); CANNABINOID SCREEN,URINE NEGATIVE (NEGATIVE); COCAINE SCREEN,URINE POSITIVE (NEGATIVE); OPIATE SCREEN,URINE NEGATIVE (NEGATIVE); PHENCYCLIDINE SCREEN,URINE NEGATIVE (NEGATIVE)
[2022-12-17] MEDS ORDERED: 0.9%NACL 1000ML 1,000 ML IV ONE (04:00)
[2022-12-17 04:39] LABS: ABG OXYGEN SATURATION 87.8 % (95.0-99.0); BASE EXCESS,VENOUS BLOOD GAS -5.6 (-2.0-3.0); PCO2,VENOUS BLOOD GAS 35 (32-45); PH,VENOUS BLOOD GAS 7.353 (7.350-7.450)
[2022-12-17 05:20] VITALS: BP 142/90
[2022-12-17] MEDS ORDERED: SULF1TAB42 PO (05:27)
== END 2022-12-17 05:25 | disposition home or self-care (01) ==
LOC: EDH 01:47
DX: N39.0 Urinary tract infection, site not specified (principal); E11.65 Type 2 diabetes mellitus with hyperglycemia; F41.9 Anxiety disorder, unspecified; F32.A Depression, unspecified; Z90.49 Acquired absence of other specified parts of digestive tract; Z79.899 Other long term (current) drug therapy; Z98.890 Other specified postprocedural states; Z79.84 Long term (current) use of oral hypoglycemic drugs
CPT/HCPCS: 99283; 80053; 82803; 80305; 85025; 82010; 81025; 36415; 36600; 81001; G0481

== ENCOUNTER 2023-06-16 09:00 | Emergency (ER) | payer MEDICAID ==
[~2023-06-16] VITALS: Ht 165.1 cm; Wt 77.1 kg
[2023-06-16] MEDS ORDERED: KETOROLAC 30MG VIAL (30MG/ML) IVP ONE (09:30)
[2023-06-16] MEDS ORDERED: LACTATED RINGERS 1000ML 1,000 ML IV ONE (09:30)
[2023-06-16] MEDS ORDERED: ONDANSETRON 4MG INJ IVP ONE (09:30)
[2023-06-16 09:33] LABS: BASOPHILS # (AUTO) 0.05 K/uL (0.00-0.20); BASOPHILS % (AUTO) 0.4 % (0.0-5.0); EOSINOPHILS # (AUTO) 0.01 K/uL (0.00-0.70); EOSINOPHILS % (AUTO) 0.1 % (0.0-8.0); IMMATURE GRANULOCYTE ABSOLUTE 0.04 K/uL (0-1); LYMPHOCYTES # (AUTO) 2.3 K/uL (1.0-4.8); LYMPHOCYTES % (AUTO) 17.1 % (21.0-51.0); MEAN CORPUSCULAR HEMOGLOBIN 29.1 pg (27.0-33.0); MEAN CORPUSCULAR HGB CONC 35.2 g/dL (32.0-36.0); MEAN CORPUSCULAR VOLUME 82.6 fL (79-99); MONOCYTES # (AUTO) 0.5 K/uL (0.1-1.0); MONOCYTES % (AUTO) 3.7 % (3.0-13.0); NEUTROPHILS # (AUTO) 10.3 K/uL (1.8-7.7); NEUTROPHILS % (AUTO) 78.4 % (40.0-77.0); PLATELET COUNT (AUTO) 329 K/uL (130-400); RED BLOOD CELL COUNT(AUTO) 5.33 MIL/uL (4.00-5.50); WHITE BLOOD COUNT (AUTO) 13.2 K/uL (4.8-10.8)
[2023-06-16] MEDS ORDERED: KETOROLAC 60 MG VIAL (30MG/ML) IM ONE (09:37)
[2023-06-16 09:44] LABS: CARBON DIOXIDE 21 mmol/L (21-32); CHLORIDE 100 mmol/L (101-111); CREATININE 0.8 mg/dL (0.5-1.5); GLOMERULAR FILTR. RATE CALC 99 mL/min (>90); GLUCOSE,RANDOM 269 mg/dL (70-105); POTASSIUM 3.7 mmol/L (3.5-5.1); SODIUM SERUM 135 mmol/L (136-145); UREA NITROGEN, BLOOD 10 mg/dL (7-18)
[2023-06-16 09:53] LABS: ALANINE AMINOTRANSFERASE 14 U/L (12-78); ALBUMIN 3.6 g/dL (3.5-5.0); ALCOHOL, BLOOD 8 mg/dL (0-10); ASPARTATE AMINOTRANSFERASE 5 U/L (10-37); BILIRUBIN,TOTAL 1.2 mg/dL (0.2-1.0); CREATINE KINASE, TOTAL 20 U/L (21-232); TOTAL PROTEIN, SERUM 8.4 g/dL (6.0-8.3)
[2023-06-16 09:54] LABS: ACETAMINOPHEN < 1 mcg/mL (10-30); SALICYLATE < 2.8 mg/dL (2.8-20.0)
[2023-06-16] MEDS ORDERED: KETOROLAC 15MG/ML VIAL (15MG/ML) IV ONE (10:00)
[2023-06-16 10:07] LABS: HCG,QUALITATIVE URINE NEGATIVE (NEGATIVE)
[2023-06-16 10:09] LABS: APPEARANCE,URINE CLEAR (CLEAR); BILIRUBIN,URINE NEGATIVE (NEGATIVE); COLOR,URINE LIGHT-YELLOW (YELLOW); GLUCOSE, URINE (UA) >=1000 mg/dL (NEGATIVE); KETONES,URINE 10 mg/dL (NEGATIVE); LEUKOCYTE ESTERASE ,URINE NEGATIVE Leu/uL (NEGATIVE); NITRATE,URINE 2+ (NEGATIVE); OCCULT BLOOD,URINE NEGATIVE (NEGATIVE); PROTEIN,URINE NEGATIVE (NEGATIVE); UROBILINOGEN,URINE 0.2 mg/dL (0.2-1.0)
[2023-06-16 10:14] LABS: ADD UA MICROSCOPIC YES
[2023-06-16 10:14] LABS: AMPHET/METH SCREEN,URINE NEGATIVE (NEGATIVE); BARBITURATE SCREEN, URINE NEGATIVE (NEGATIVE); BENZODIAZEPINES SCREEN,URINE NEGATIVE (NEGATIVE); CANNABINOID SCREEN,URINE NEGATIVE (NEGATIVE); COCAINE SCREEN,URINE POSITIVE (NEGATIVE); OPIATE SCREEN,URINE NEGATIVE (NEGATIVE); PHENCYCLIDINE SCREEN,URINE NEGATIVE (NEGATIVE)
[2023-06-16 10:16] LABS: BACTERIA,URINE RARE /HPF (None Seen); MUCUS,URINE RARE LPF (None Seen); SQUAMOUS EPITHELIAL CELL,UR RARE /HPF (0-2)
[2023-06-16 11:16] VITALS: BP 122/77; PULSE 50; RESP 16; O2SAT 99
[2023-06-16] MEDS ORDERED: MORPHINE 4 MG SYG IVP ONE (12:00)
[2023-06-16] MEDS ORDERED: IBUP-2070 PO (12:05)
[2023-06-16] MEDS ORDERED: ONDA4TAB10 PO (12:05)
== END 2023-06-16 12:21 | disposition home or self-care (01) ==
LOC: EDH 09:00
DX: R07.89 Other chest pain (principal); R10.9 Unspecified abdominal pain; F10.10 Alcohol abuse, uncomplicated; F14.10 Cocaine abuse, uncomplicated; E11.9 Type 2 diabetes mellitus without complications; Z90.49 Acquired absence of other specified parts of digestive tract; Z79.899 Other long term (current) drug therapy; Z98.890 Other specified postprocedural states; Z87.442 Personal history of urinary calculi; Z88.1 Allergy status to other antibiotic agents; Z88.8 Allergy status to other drugs, medicaments and biological substances
CPT/HCPCS: 99285; 74176; 96374; 71045; 96361; 96375; 82550; 84484; 80053; 80305; 85025; 87077; 87088; 87186; 81025; 36415; 93005; 81001; J7120; J2405; J2270; J1885; G0481

== ENCOUNTER 2024-04-23 17:26 | Emergency (ER) | payer BC ==
[~2024-04-23] VITALS: Ht 165.1 cm; Wt 65.8 kg
[~2024-04-23 17:26] MED LIST changes: -DICY20TA2 PO; +IBUP-2070 PO; -METF-444 PO; -METF-445 PO; +METF-446 PO; +ONDA-243 PO; -ONDA4TAB10 PO; -POLY17PO4 PO
[2024-04-23] MEDS: PANTOPRAZOLE 40 MG/VIAL IVP ONE (17:46)
[2024-04-23] MEDS: ONDANSETRON 4MG INJ IVP ONE (17:46)
[2024-04-23] MEDS: 0.9%NACL 1000ML 1,000 ML IV ONE (17:46)
[2024-04-23] MEDS: MORPHINE 4 MG SYG IVP ONE ×2 (17:47→21:57)
[2024-04-23 17:55] LABS: BASOPHILS # (AUTO) 0.06 K/uL (0.00-0.20); BASOPHILS % (AUTO) 0.4 % (0.0-5.0); EOSINOPHILS # (AUTO) 0.13 K/uL (0.00-0.70); EOSINOPHILS % (AUTO) 0.9 % (0.0-8.0); HEMATOCRIT 43.3 % (36-48); IMMATURE GRANULOCYTE ABSOLUTE 0.05 K/uL (0-1); LYMPHOCYTES # (AUTO) 3.4 K/uL (1.0-4.8); LYMPHOCYTES % (AUTO) 23.4 % (21.0-51.0); MEAN CORPUSCULAR HEMOGLOBIN 30.6 pg (27.0-33.0); MEAN CORPUSCULAR HGB CONC 35.1 g/dL (32.0-36.0); MEAN CORPUSCULAR VOLUME 87.1 fL (79-99); MONOCYTES # (AUTO) 1.1 K/uL (0.1-1.0); MONOCYTES % (AUTO) 7.3 % (3.0-13.0); NEUTROPHILS # (AUTO) 9.9 K/uL (1.8-7.7); NEUTROPHILS % (AUTO) 67.7 % (40.0-77.0); PLATELET COUNT (AUTO) 426 K/uL (130-400); RED BLOOD CELL COUNT(AUTO) 4.97 MIL/uL (4.00-5.50); RED CELL DISTRIBUTION WIDTH 12.8 % (11.0-15.5); WHITE BLOOD COUNT (AUTO) 14.6 K/uL (4.8-10.8)
[2024-04-23 18:13] LABS: ALBUMIN 3.7 g/dL (3.5-5.0); BILIRUBIN,TOTAL 1.9 mg/dL (0.2-1.0); POTASSIUM 3.4 mmol/L (3.5-5.1); TOTAL PROTEIN, SERUM 8.5 g/dL (6.0-8.3)
[2024-04-23 21:12] LABS: ADD UA MICROSCOPIC YES; APPEARANCE,URINE CLOUDY (CLEAR); BILIRUBIN,URINE NEGATIVE (NEGATIVE); COLOR,URINE YELLOW (YELLOW); GLUCOSE, URINE (UA) 500 mg/dL (NEGATIVE); KETONES,URINE NEGATIVE (NEGATIVE); LEUKOCYTE ESTERASE ,URINE 250 Leu/uL (NEGATIVE); NITRATE,URINE NEGATIVE (NEGATIVE); OCCULT BLOOD,URINE LARGE (NEGATIVE); PH,URINE 5.5 (5.0-8.0); PROTEIN,URINE 30 mg/dL (NEGATIVE); UROBILINOGEN,URINE 0.2 mg/dL (0.2-1.0)
[2024-04-23 21:14] LABS: BACTERIA,URINE RARE /HPF (None Seen); MUCUS,URINE FEW LPF (None Seen); OTHER CASTS, URINE 1 /LPF (None Seen); SQUAMOUS EPITHELIAL CELL,UR FEW /HPF (0-2); UNCLASSIFIED CRYSTAL 2 /HPF (None Seen)
[2024-04-23 21:19] LABS: AMPHET/METH SCREEN,URINE POSITIVE (NEGATIVE); BARBITURATE SCREEN, URINE NEGATIVE (NEGATIVE); BENZODIAZEPINES SCREEN,URINE NEGATIVE (NEGATIVE); CANNABINOID SCREEN,URINE NEGATIVE (NEGATIVE); COCAINE SCREEN,URINE NEGATIVE (NEGATIVE); OPIATE SCREEN,URINE POSITIVE (NEGATIVE); PHENCYCLIDINE SCREEN,URINE NEGATIVE (NEGATIVE)
[2024-04-23] MEDS ORDERED: ZOSYN 3.375GM +NS 50ML IVPB ONE (21:30)
[2024-04-23] MEDS: sulfaMETHOX-TMP DS 800/160 TAB PO ONE (21:57)
[2024-04-23] MEDS ORDERED: SULF1TAB42 PO (22:12)
[2024-04-23] MEDS ORDERED: PHARMACY COMMUNICATION MISC SCH (22:30)
[2024-04-23 22:42] VITALS: BP 122/67; PULSE 99; RESP 18; O2SAT 97
[2024-04-23] MEDS: fluTICasone proPIONate 50MCG/SPRAY 16 GM BOTTLE EN SCH (22:42)
[2024-04-24] MEDS ORDERED: ceTIRIzine HCL 5 MG TABLET PO SCH (09:00)
== END 2024-04-23 22:49 | disposition home or self-care (01) ==
LOC: EDH 17:26
DX: R10.32 Left lower quadrant pain (principal); F10.10 Alcohol abuse, uncomplicated; F14.10 Cocaine abuse, uncomplicated; E11.9 Type 2 diabetes mellitus without complications; E87.6 Hypokalemia; E11.65 Type 2 diabetes mellitus with hyperglycemia; R00.0 Tachycardia, unspecified; N39.0 Urinary tract infection, site not specified; Z87.442 Personal history of urinary calculi; Z88.1 Allergy status to other antibiotic agents; Z79.899 Other long term (current) drug therapy; Z79.84 Long term (current) use of oral hypoglycemic drugs; Z98.890 Other specified postprocedural states
CPT/HCPCS: 99284; 74176; 96374; 96361; 96375; 80053; 80305; 84703; 83690; 85025; 87086; 36415; 96376; 81001; J7030; J2405; J2270 ×2; J2470

== ENCOUNTER 2025-04-16 11:18 | Emergency (ER) | payer BC ==
[~2025-04-16] VITALS: Ht 165.1 cm; Wt 70.3 kg
[~2025-04-16 11:18] MED LIST changes: +GLIP10TA16 PO; -GLIP10TA9 PO; +IBUP-1492 PO; -IBUP-2070 PO; +NITR-166 PO; +SULF1TAB42 PO
--- NOTE | 2025-04-16 11:31 | NUR ---
PT ARRIVED TO FACILITY. REFUSES TO REMOVE CLOTHING DUE TO NOT HAVING UNDERWEAR.
--- NOTE | 2025-04-16 11:40 | NUR ---
PT PLACED IN PAPER GOWN AT THIS TIME. UA COLLECTED. BELONGINGS HAVE BEEN PLACED IN BELONGINGS BAG. PT STATES SHE HAS SUICIDAL THOUGHTS BUT DENIES HI. PT STATES "I DONT WANT TO KILL MYSELF I JUST WANT TO HURT MYSELF" DENIES HAVING A SUICIDE PLAN. STATES SHE HAS BEEN HEARING VOICES FOR A WHILE. PT STATED SHE HAS SMOKED METH AND LAST INTAKE WAS THIS MORNING.
--- NOTE | 2025-04-16 11:44 | ERN ---
ED Note History of Present Illness Stated Complaint: PSYCH EVALUATION Chief Complaint: Psych Evaluation Time Seen by MD: 11:27 Time Seen by Midlevel: 11:27 Dictation: The patient is a 34-year-old female with a history of diabetes, depression, anxiety who presents to the emergency department with complaints of suicidal ideations, anxiety, auditory hallucination. Patient reports that she has been having them on and off for awhile. Denies any homicidal ideations denies any recent suicidal attempt Allergies: Coded Allergies: ceftriaxone (Unverified Allergy, Unknown, HIVES, 03/25/16) levofloxacin (Unverified Allergy, Unknown, HIVES, 03/25/16) Home Meds Active Scripts Nitrofurantoin Macrocrystal (Macrodantin) 100 Mg Cap, 1 CAP PO BID for 7 Days, #14 CAP 0 Refills Prov:BRAYAN POSEY MD 02/14/25 Sulfamethoxazole/Trimethoprim (Bactrim Ds Tablet) 800 Mg-160 Mg Tablet, 1 TAB PO BID for 7 Days, #14 TAB Prov:CLAIRE RIVAS MD 04/23/24 Ondansetron (Ondansetron Odt) 4 Mg Tab.rapdis, 4 MG PO Q6HPRN PRN for nausea, #12 TAB 0 Refills Prov:LIDA GARCIA MD 06/16/23 Ibuprofen (Ibuprofen) 600 Mg Tablet, 600 MG PO Q6H PRN for PAIN, #20 TAB Prov:LIDA GARCIA MD 06/16/23 Reported Medications Metformin HCl (Metformin HCl) 1,000 Mg Tablet, 1000 MG PO BID, TAB 10/12/23 Glipizide (Glipizide) 10 Mg Tablet, 10 MG PO TIDAC, TAB 10/12/23 Past Medical History Past Medical History: Anxiety, Depression, Diabetes-Type II, Kidney Stone, Other Additional Past Medical Hx: BACK PAIN Surgical History: Appendectomy, Other Surgical History Other: LEFT KIDNEY STENT Social History: Drugs, ETOH RN Note Reviewed/Agreed w/PFSH: Yes Review of System Dictation Constitutional: Negative for fever,chills, and weight loss Eyes: Negative for injury, pain,redness, and discharge ENT: Negative for injury,pain or swelling Cardiovascular: Negative for chest pain, palpitations, and edema Respiratory: Negative for shortness of breath, cough, and wheezing, Abdomen/GI: Negative for abdominal pain, nausea, vomiting, diarrhea, and constipation Back: Negative for injury and pain : Negative for injury, bleeding and discharge MS/Extremity: Negative for injury and deformity Skin: Negative for rash, and discoloration Neuro: Negative for headache, weakness, numbness, tingling, and seizure Psych: Negative for homicidal ideation positive for suicidal ideations, halluci nations Initial Vital Sign VS Vital Signs Date Time Temp Pulse Resp B/P (MAP) Pulse Ox O2 Delivery O2 Flow Rate FiO2 04/16/25 11:28 98.1 95 20 145/89 98 Room Air 04/16/25 12:00 0 21 Physical Exam Dictation Vital Signs reviewed General Appearance: Alert, oriented x 3, no acute distress, well developed, nourished. Head and Face: non-traumatic. Eyes: PERRL, pink conjunctivas, eyelid no trauma, anterior chamber with arcus senilis. Ears: Pinnas intact and no signs of trauma or erythema ear canals clear and no discharge TM no erythema Nose: No discharge, no bleeding. Oropharynx: Mouth normal, tongue pink. pharynx clear,no erythema, tonsils no exudates, no abscesses noted, mucous membrane moist Neck: Supple, non-tender, no thyromegaly, no masses, no JVD, no bruits Breast:Deferred Chest:No tenderness, no crepitus, no paradoxical movement, no retractions Lungs:Clear, well-ventilated, symmetric, no rales, no wheezing, no rhonchi, no stridor, good breath sounds bilaterally Heart: Regular rate, regular rhythm, no murmur, no gallops Vascular: no peripheral edema, Abdomen: Soft, positive bowel sounds, nondistended, no guarding, nontender, no rebound, no masses no hepatomegaly, no splenomegaly, no Woodson's sign, no hernias. Rectal: Deferred Genital: Deferred Neurological: Normal speech, motor function intact, sensory function intact Musculoskeletal: Neck nontender, full range of motion, back nontender, full range of motion, Extremities: nontender, full range of motion Skin: Color pink, dry, no turgor, no rash, no lacerations, no abrasions, no contusions. Lymphatic: Deferred Results (Laboratory/Radiology) Laboratory/Radiology Laboratory Tests Test 04/16/25 11:34 04/16/25 11:58 Urine Color LIGHT-YELLOW (YELLOW) Urine Appearance CLEAR (CLEAR) Urine pH 6.5 (5.0-8.0) Urine Specific [place] 1.034 (1.001-1.031) Urine Protein NEGATIVE mg/dL (NEGATIVE) Urine Glucose (UA) >=1000 mg/dL (NEGATIVE) H Urine Ketones 10 mg/dL (NEGATIVE) H Urine Occult Blood NEGATIVE (NEGATIVE) Urine Nitrate NEGATIVE (NEGATIVE) Urine Bilirubin NEGATIVE mg/dL (NEGATIVE) Urine Urobilinogen 2.0 mg/dL (0.2-1.0) H Urine Leukocyte Esterase NEGATIVE [place]on/uL Urine RBC 0-1 /HPF (0-1) Urine WBC 6-10 /HPF (0-1) H Urine Squamous Epithelial Cells FEW /HPF (0-2) Urine Bacteria RARE /HPF (None Seen) Urine Opiates Screen NEGATIVE (NEGATIVE) Urine Barbiturates Screen NEGATIVE (NEGATIVE) Urine Phencyclidine Screen NEGATIVE (NEGATIVE) Urine Amphetamines Screen POSITIVE (NEGATIVE) H Urine Benzodiazepines Screen NEGATIVE (NEGATIVE) Urine Cocaine Screen NEGATIVE (NEGATIVE) Urine Marijuana (THC) Screen NEGATIVE (NEGATIVE) White Blood Count 12.2 K/uL (4.8-10.8) H Red Blood Count 4.54 MIL/uL (4.00-5.50) Hemoglobin 13.5 g/dL (12.0-16.0) Hematocrit 38.4 % (36-48) Mean Corpuscular Volume 84.6 fL (79-99) Mean Corpuscular Hemoglobin 29.7 pg (27.0-33.0) Mean Corpuscular Hemoglobin Concent 35.2 g/dL (32.0-36.0) Red Cell Distribution Width 13.2 % (11.0-15.5) Platelet Count 298 K/uL (130-400) Mean Platelet Volume 11.2 fL (7.5-10.5) H Immature Granulocyte % (Auto) 0.2 % (0-1) Neutrophils (%) (Auto) 66.2 % (40.0-77.0) Lymphocytes (%) (Auto) 27.4 % (21.0-51.0) Monocytes (%) (Auto) 5.8 % (3.0-13.0) Eosinophils (%) (Auto) 0.2 % (0.0-8.0) Basophils (%) (Auto) 0.2 % (0.0-5.0) Neutrophils # (Auto) 8.1 K/uL (1.8-7.7) H Lymphocytes # (Auto) 3.3 K/uL (1.0-4.8) Monocytes # (Auto) 0.7 K/uL (0.1-1.0) Eosinophils # (Auto) 0.03 K/uL (0.00-0.70) Basophils # (Auto) 0.02 K/uL (0.00-0.20) Absolute Immature Granulocyte (auto 0.03 K/uL (0-1) Nucleated Red Blood Cells 0.0 % (0.0-0.19) Sodium Level 140 mmol/L (136-145) Potassium Level 3.3 mmol/L (3.5-5.1) L Chloride Level 104 mmol/L (101-111) Carbon Dioxide Level 27 mmol/L (21-32) Blood Urea Nitrogen 11 mg/dL (7-18) Creatinine 0.7 mg/dL (0.5-1.0) Glomerular Filtration Rate Calc 116 mL/min (>90) Random Glucose 188 mg/dL (70-105) H Total Calcium 8.9 mg/dL (8.5-10.1) Total Creatine Kinase 49 U/L (21-232) # Serum Test, Qualitative NEGATIVE (NEGATIVE) Salicylates Level < 2.8 mg/dL (2.8-20.0) L Acetaminophen Level < 1 mcg/mL (10-30) L Serum Alcohol < 3 mg/dL (0-10) Labs Reviewed?: Yes ED Course ED Course Orders Procedure Category Date Status Time Cbc With Differential LAB 04/16/25 Complete 11:37 Alcohol, Blood LAB 04/16/25 Complete 11:37 Salicylate LAB 04/16/25 Complete 11:37 Acetaminophen LAB 04/16/25 Complete 11:37 Testing, LAB 04/16/25 Complete Serum Hcg 11:37 Urinalysis Profile LAB 04/16/25 Complete 11:37 Basic Metabolic Panel LAB 04/16/25 Complete 11:37 Drug Screen Urine LAB 04/16/25 Complete 11:37 Creatine Kinase, Total LAB 04/16/25 Complete 11:51 Culture Urine MIN 04/16/25 In Process 12:21 Vital Signs Date Time Temp Pulse Resp B/P (MAP) Pulse Ox O2 Delivery O2 Flow Rate FiO2 04/16/25 16:04 98.4 73 18 165/93 98 Room Air* 0 21 04/16/25 14:32 96 20 162/88 100 Room Air* 0 21 04/16/25 13:30 96 20 162/88 96 Room Air* 0 21 04/16/25 12:00 98.2 91 18 137/86 98 Room Air* 0 21 04/16/25 11:28 98.1 95 20 145/89 98 Room Air Medical Decision Making MDM The patient is a 34-year-old female with a history of diabetes, depression, anxiety who presents to the emergency department with complaints of suicidal ideations, anxiety, auditory hallucination. Patient reports that she has been having them on and off for awhile. Denies any homicidal ideations denies any recent suicidal attempt CBC showed mild leukocytosis, no anemia, chemistry showed no electrolyte imbalance, normal renal function, chemistry showed mild hypokalemia, urinalysis unremarkable, urine drug screen positive for amphetamines. Patient was examined by tropical who report that she does not meet inpatient hospitalization and will be followed up as outpatient in 24 hours. Patient currently with no suicidal plan. Patient in no acute distress, alert and oriented x4. We will be discharged to follow up. Differential diagnosis: Psychosis, drug abuse, suicidal ideations, depression Need for hospitalization: Patient does not meet criteria for hospitalization. There are no social concerns with this patient. DX & DISP Disposition: Discharge Departure Impression: Primary Impression: Anxiety Additional Impression: Drug abuse Condition: Stable Additional Instructions: Please follow up with behavioral health in the next24 hours. Follow up with the primary doctor. If anything worsens please return to ER. FOLLOW-UP WITH PRIMARY CARE PROVIDER IN 1 TO 2 DAYS. TAKE MEDICATIONS DIRECTED HERE IN THE EMERGENCY ROOM. OKAY TO CONTINUE HOME MEDICATIONS UNLESS OTHERWISE DISCUSSED DURING YOUR VISIT IN THE EMERGENCY ROOM TODAY. RETURN TO YOUR NEAREST EMERGENCY ROOM IF SYMPTOMS WORSEN OR IF THERE IS NO IMPROVEMENT. CALL 911 IF YOU NEED IMMEDIATE ASSISTANCE. TAKE TYLENOL [id number] NEEDED AND IF NO CONTRAINDICATIONS ARE PRESENT. INCREASE ORAL HYDRATION. A WOUND CULTURE OR URINE CULTURE WAS ORDERED HERE IN THE EMERGENCY ROOM DEPARTMENT PLEASE FOLLOW-UP WITH PRIMARY CARE PROVIDER AND ADVISE THEM TO GET REPEAT PORTS FROM OUR FACILITY. IF YOU HAD ANY OSMANI WRAP/SPLINTS THAT WERE APPLIED HERE, PLEASE DO NOT REMOVE THEM UNTIL YOU SEE YOUR PRIMARY CARE OR SPECIALTY. Referrals: MARIA L MOTLEY MD (PCP) Time of Disposition: 16:46 I have reviewed the case, and I agree with, Diagnosis and Plan TESHA MARTINEZ [facility] Apr 16, 2025 11:44
--- NOTE | 2025-04-16 11:47 | NUR ---
[facility] SOCIAL WORK PROFESSOR HERE TO DRYING ROOM ATTENDANT BELONGINGS AT THIS TIME
[2025-04-16 12:05] LABS: IMMATURE GRANULOCYTE ABSOLUTE 0.03 K/uL (0-1); NUCLEATED RED BLOOD CELLS 0.0 % (0.0-0.19); PLATELET COUNT (AUTO) 298 K/uL (130-400); RED BLOOD CELL COUNT(AUTO) 4.54 MIL/uL (4.00-5.50); RED CELL DISTRIBUTION WIDTH 13.2 % (11.0-15.5); WHITE BLOOD COUNT (AUTO) 12.2 K/uL (4.8-10.8)
[2025-04-16 12:12] LABS: APPEARANCE,URINE CLEAR (CLEAR); GLUCOSE, URINE (UA) >=1000 mg/dL (NEGATIVE); LEUKOCYTE ESTERASE ,URINE NEGATIVE Leu/uL (NEGATIVE); NITRATE,URINE NEGATIVE (NEGATIVE); OCCULT BLOOD,URINE NEGATIVE (NEGATIVE)
[2025-04-16 12:14] LABS: CREATININE 0.7 mg/dL (0.5-1.0); GLOMERULAR FILTR. RATE CALC 116 mL/min (>90); GLUCOSE,RANDOM 188 mg/dL (70-105); SODIUM SERUM 140 mmol/L (136-145); UREA NITROGEN, BLOOD 11 mg/dL (7-18)
[2025-04-16 12:16] LABS: ADD UA MICROSCOPIC YES
[2025-04-16 12:17] LABS: SQUAMOUS EPITHELIAL CELL,UR FEW /HPF (0-2)
[2025-04-16 12:20] LABS: ALCOHOL, BLOOD < 3 mg/dL (0-10)
[2025-04-16 12:31] LABS: AMPHET/METH SCREEN,URINE POSITIVE (NEGATIVE); BARBITURATE SCREEN, URINE NEGATIVE (NEGATIVE); CANNABINOID SCREEN,URINE NEGATIVE (NEGATIVE); COCAINE SCREEN,URINE NEGATIVE (NEGATIVE)
--- NOTE | 2025-04-16 12:45 | NUR ---
CALLED [facility] TO REQUEST SCREENER FOR PT AT THIS TIME. ETA NOT PROVIDED
--- NOTE | 2025-04-16 13:25 | NUR ---
DESTINI PANG AT BEDSIDE AT THIS TIME
--- NOTE | 2025-04-16 16:03 | NUR ---
CALLED [facility] TO REQUEST UPDATE ON PT PLACEMENT. PENDING CALL BACK.
[2025-04-16 16:04] VITALS: BP 165/93; PULSE 73; RESP 18; TEMP 98.4; O2SAT 98
--- NOTE | 2025-04-16 16:08 | NUR ---
RECEIVED CALL BACK FROM [facility] AND SPOKE WITH URMILA HightowerCARD GAME OPERATOR). STATED SHE GOT IN TOUCH WITH THE SCREENER AND THE PT DID NOT MEET CRITERIA FOR PLACEMENT. WILL FOLLOW UP IN 24 HOURS.
--- NOTE | 2025-04-16 17:03 | NUR ---
PT DISCHARGED. DISCHARGE EDUCATION WAS GIVEN TO PT. PT STATED SHE WILL WAIT IN THE LOBBY TO WAIT FOR HER RIDE.
== END 2025-04-16 17:00 | disposition home or self-care (01) ==
LOC: EDH 11:18
DX: F41.9 Anxiety disorder, unspecified (principal); F19.10 Other psychoactive substance abuse, uncomplicated; F32.A Depression, unspecified; E11.9 Type 2 diabetes mellitus without complications; Z79.84 Long term (current) use of oral hypoglycemic drugs; Z88.1 Allergy status to other antibiotic agents; Z90.49 Acquired absence of other specified parts of digestive tract
CPT/HCPCS: 99283; 82550; 80048; 80305; 84703; 85025; 87086; 36415; 81001; G0481